=== PATIENT | female | born 1985 | race Caucasian/White ===

== ENCOUNTER 2020-04-24 17:14 | Inpatient (IN) | payer BC, OTHER ==
[2020-04-24] MEDS ORDERED: LIDOCAINE 1% INJ 10MG/ML (20 ML MDV) ONE (17:27)
[2020-04-24] MEDS ORDERED: VERAPAMIL 2.5 MG/ML 2 ML AMP ONE (17:27)
--- NOTE | 2020-04-24 17:29 | ED ---
General Adult HPI - General Chief complaint: Chest Pain Stated complaint: STEMI Time Seen by Provider: 04/24/20 17:14 Source: patient, EMS, RN notes reviewed, old records reviewed Mode of arrival: EMS Limitations: no limitations - History of Present Illness Initial comments: This is a 35-year-old female who presents emergency Department from [facility]. Patient states she started having chest pain radiated to her head she states she was short of breath and sweating profusely. Patient went to [facility] with a found to her to be having a STEMI and they called us to transfer the patient get her ready for the [facility] [employer] [facility]. Patient states she had morphine and her pain was down to a 6 she was still mildly short of breath and sweaty. Patient states she is a diabetic has high blood pressure has a strong family history of heart disease - Related Data Home Medications Medication Instructions Recorded Confirmed INSULIN ASPART (NovoLOG) [NovoLOG] 0 unit SQ ACHS 08/07/14 08/07/14 Insulin Glargine,Hum.rec.anlog 0 unit SQ DAILY 08/07/14 08/07/14 [Lantus Solostar] Labetalol [Trandate] 100 mg PO BID 08/07/14 08/07/14 Allergies Allergy/AdvReac Type Severity Reaction Status Date / Time No Known Allergies Allergy Verified 04/24/20 17:20 Review of Systems ROS Statement: Those systems with pertinent positive or pertinent negative responses have been documented in the HPI. ROS Other: All systems not noted in ROS Statement are negative. Past Medical History Past Medical History: Diabetes Mellitus, Hypertension History of Any Multi-Drug Resistant Organisms: None Reported Past Surgical History: Section, Cholecystectomy Past Psychological History: No Psychological Hx Reported Smoking Status: Current every day smoker Past Alcohol Use History: None Reported Past Drug Use History: None Reported General Exam - General Exam Comments Initial Comments: GENERAL: Patient is well-developed and well-nourished. Patient is nontoxic and well- hydrated and is in moderate patient was diaphoretic distress. ENT: Neck is soft and supple. No significant lymphadenopathy is noted. Oropharynx is clear. Moist mucous membranes. Neck has full range of motion without eliciting any pain. EYES: The sclera were anicteric and conjunctiva were pink and moist. Extraocular movements were intact and pupils were equal round and reactive to light. Eyelids were unremarkable. PULMONARY: Unlabored respirations. Good breath sounds bilaterally. No audible rales rhonchi or wheezing was noted. CARDIOVASCULAR: There is a regular rate and rhythm without any murmurs gallops or rubs. ABDOMEN: Soft and nontender with normal bowel sounds. SKIN: Skin is clear with no lesions or rashes and otherwise unremarkable. NEUROLOGIC: Patient is alert and oriented x3. Cranial nerves II through XII are grossly intact. Motor and sensory are also intact. Normal speech, volume and content. Symmetrical smile. MUSCULOSKELETAL: Normal extremities with adequate strength and full range of motion. No lower extremity swelling or edema. No calf tenderness. LYMPHATICS: No significant lymphadenopathy is noted PSYCHIATRIC: Normal psychiatric evaluation. Limitations: no limitations Course Vital Signs 04/24/20 17:16 Temperature 97.6 F Pulse Rate 97 Respiratory 18 Rate Blood Pressure 148/102 O2 Sat by Pulse 97 Oximetry Medical Decision Making - Medical Decision Making EKG shows a normal sinus rhythm at 96 bpm WI interval 282 QRS and 116 QT interval is 42 QTC is 507. Patient's EKG shows no ST segment elevation or depression. However EKG that was sent with the patient showed significant ST segment elevation inferior leads II, III, and F aVF. I called a STEMI overhead and Dr. Riley returned the call and they will be taking the patient to the Labor Economics Teacher. Patient had already received aspirin and morphine and heparin bolus patient's blood pressure was systolic 99 so I gave her a liter bolus of fluid Disposition Clinical Impression: ST elevation myocardial infarction (STEMI) Disposition: ADMITTED IP TO THIS HOSP Referrals: Lucinda Hay MD [Primary Care Provider] - 1-2 days Time of Disposition: 17:23
[2020-04-24] MEDS ORDERED: fentaNYL (PF) 50 MCG/ML 2 ML AMP IV ONE (17:35)
[2020-04-24] MEDS: MIDAZOLAM 2 MG/2 ML VIAL IV ONE ×2 (17:35→18:14)
[2020-04-24] MEDS ORDERED: IV FLUID CONTINUATION 1,000 ML IV ONE (17:35)
[2020-04-24] MEDS ORDERED: LIDOCAINE 1% INJ 10MG/ML (20 ML MDV) SQ ONE (17:36)
[2020-04-24] MEDS: VERAPAMIL SYRINGE (5 MG/10 ML) INTRAARTER ONE ×2 (17:38→18:14)
[2020-04-24] MEDS ORDERED: fentaNYL (PF) 50 MCG/ML 2 ML AMP ONE (17:40)
[2020-04-24] MEDS: HEPARIN SODIUM 1,000 UN/ML (10ML VL) IV ONE ×2 (17:45→17:59)
[2020-04-24] MEDS: NITROGLYCERIN 1000MCG/10ML SYRINGE INTRACORON ONE ×2 (17:45→18:09)
--- NOTE | 2020-04-24 17:48 | XR ---
EXAMINATION: XR chest 1V portable DATE AND TIME: 04/24/2020 5:27 PM CLINICAL INDICATION: PHH; CHEST PAIN TECHNIQUE: AP portable upright COMPARISON: None FINDINGS: The lungs are clear. The pleural spaces are negative. The cardiac silhouette is not enlarged. The remainder of the mediastinal silhouette is unremarkable. The skeletal structures and soft tissues are negative for acute findings. IMPRESSION: NO ACUTE PROCESS.
[2020-04-24] MEDS ORDERED: PRASUGREL 10 MG TAB ONE (17:49)
[2020-04-24] MEDS ORDERED: PRASUGREL 10 MG TAB PO ONE (17:52)
[2020-04-24] MEDS ORDERED: IOPAMIDOL-370 100ML BTL INJ ONE (18:13)
[2020-04-24] MEDS ORDERED: MAG HYDROX/AL HYDROX/SIMETH 30 ML CUP PO PRN (18:32)
[2020-04-24] MEDS ORDERED: NITROGLYCERIN SL TABS 0.4 MG TAB SUBLINGUAL PRN (18:32)
[2020-04-24] MEDS ORDERED: ZOLPIDEM 5 MG TAB PO PRN (18:32)
[2020-04-24] MEDS ORDERED: RX INFO: IV CONTRAST WAS GIVEN 1 EACH MISC MISCELLANE PRN (18:32)
[2020-04-24] MEDS ORDERED: ATROPINE SULFATE 0.1 MG/ML 10ML SYRINGE IV PRN (18:32)
[2020-04-24 18:39] LABS: Glucose,Whole Blood 382 mg/dL (75-99)
--- NOTE | 2020-04-24 18:43 | P.CRDCN ---
History of Present Illness Consult date: 04/24/20 History of present illness: HISTORY OF PRESENTING ILLNESS This is a pleasant 35-year-old female past medical history significant for hypertension, diabetes mellitus, tobacco abuse and miscarriages who presents with 2 hours worth of chest pain. Patient states she was going about her day feeling normal and then had sudden onset of chest pressure and did not feel well. Patient therefore presented to [facility] where she was given aspirin and heparin with improvement of her chest pain to a 1-2. Initial EKG showed inferior STEMI and the phlebotomist lab assistant was activated. Patient was transferred to [facility] for further management. Upon arrival to the [facility] she had no chest pain. She denies any prior similar episodes. She does not see a travel freight and passenger agent. DIAGNOSTICS EKG reveals normal sinus rhythm, incomplete left bundle branch block, minimal upsloping ST segment elevation in inferior leads. Chest xray no acute process. Laboratory not resulted yet Patient does not take any home medications. Positive tobacco abuse. No illicit drugs. REVIEW OF SYSTEMS At the time of my exam: CONSTITUTIONAL: Denies fever or chills. CARDIOVASCULAR: +chest pain, + associated shortness of breath, no orthopnea, PND or palpitations. RESPIRATORY: Denies cough. GASTROINTESTINAL: Denies abdominal pain, diarrhea, constipation, nausea or vomiting. MUSCULOSKELETAL: Denies myalgias. NEUROLOGIC: Denies numbness, tingling or weakness. ENDOCRINE: Denies fatigue, weight change, polydipsia or polyurina. GENITOURINARY: Denies burning, hematuria or urgency with micturation. HEMATOLOGIC: Denies history of anemia or bleeding. PHYSICAL EXAMINATION Blood pressure 162/85 heart rate 105 afebrile and maintaining oxygen saturation on room air. CONSTITUTIONAL: No apparent distress. HEENT: Head is normocephalic. Pupils are equal, round. Sclerae anicteric. Mucous membranes of the mouth are moist. No JVD. No carotid bruit. CHEST EXAMINATION: Lungs are clear to auscultation. No chest wall tenderness is noted on palpation or with deep breathing. HEART EXAMINATION: Regular rate and rhythm. S1, S2 heard. No murmurs, gallops or rub. ABDOMEN: Soft, nontender. Positive bowel sounds. EXTREMITIES: 2+ peripheral pulses, no lower extremity edema and no calf tenderness. NEUROLOGIC EXAMINATION: Patient is awake, alert and oriented x3. ASSESSMENT 1. Inferior STEMI with resolution of pain by time she presented to the phlebotomist lab assistant 2. Tobacco abuse 3. Hypertension 4. History of diabetes mellitus type 2 PLAN Catheterization lab activated and patient will be brought for emergent left heart catheterization with possible PCI. Aggressive risk factor modification. Tobacco cessation. Aspirin, heparin, beta valentin. Check 2-D echo. Past Medical History Past Medical History: Diabetes Mellitus, Hypertension History of Any Multi-Drug Resistant Organisms: None Reported Past Surgical History: Section, Cholecystectomy Past Psychological History: No Psychological Hx Reported Smoking Status: Current every day smoker Past Alcohol Use History: None Reported Past Drug Use History: None Reported Medications and Allergies Home Medications Medication Instructions Recorded Confirmed Type Atorvastatin [Lipitor] 20 mg PO DAILY 04/24/20 04/24/20 History Insulin Glargine,Hum.rec.anlog 30 unit SQ HS 04/24/20 04/24/20 History [Basaglar Kwikpen U-100] Insulin Lispro [humaLOG] See Protocol SQ ACHS 04/24/20 04/24/20 History Levonorgestrel-Ethin Estradiol 1 tab PO DAILY 04/24/20 04/24/20 History [Lutera-28 Tablet] Allergies Allergy/AdvReac Type Severity Reaction Status Date / Time No Known Allergies Allergy Verified 04/24/20 17:20 Physical Exam Vitals: Vital Signs Temp Pulse Resp BP Pulse Ox 04/24/20 17:16 97.6 F 97 18 148/102 97 Intake and Output 04/24/20 04/24/20 04/24/20 06:59 14:59 22:59 Intake Total 150 Balance 150 Intake: IV 150 Other: Weight 81.647 kg Results Current Medications Generic Name Dose Route Start Last Admin Trade Name Freq PRN Reason Stop Dose Admin Al Hydroxide/Mg Hydroxide 30 ml 04/24/20 18:32 Mag Hydrox/Al Hydrox/Simeth 30 Ml Cup PO Q4HR PRN Heartburn Aspirin 81 mg 04/25/20 09:00 Aspirin 81 Mg PO DAILY REPLACED BY [facility] Atorvastatin Calcium 80 mg 04/24/20 21:00 Atorvastatin 80 Mg Tab PO HS REPLACED BY [facility] Atropine Sulfate 0.5 mg 04/24/20 18:32 Atropine Sulfate 0.1 Mg/Ml 10ml Syringe IV ONCE PRN Symptomatic Bradycardia Sodium Chloride 1,000 mls @ 75 mls/hr 04/24/20 18:45 Saline 0.9% IV 04/25/20 00:46 .[id number] ALBERTO Metoprolol Tartrate 25 mg 04/24/20 21:00 Metoprolol Tartrate 25 Mg Tab PO BID ALBERTO Miscellaneous Information 1 each 04/24/20 18:32 Rx Info: Iv Contrast Was Given 1 Each Misc MISCELLANE 04/26/20 18:32 DAILY PRN Per Protocol Nitroglycerin 0.4 mg 04/24/20 18:32 Nitroglycerin Sl Tabs 0.4 Mg Tab SUBLINGUAL Q5M PRN Chest Pain Prasugrel 10 mg 04/25/20 09:00 Prasugrel 10 Mg Tab PO DAILY ALBERTO Zolpidem Tartrate 5 mg 04/24/20 18:32 Zolpidem 5 Mg Tab PO HS PRN Insomnia Intake and Output 04/24/20 04/24/20 04/24/20 06:59 14:59 22:59 Intake Total 150 Balance 150 Intake: IV 150 Other: Weight 81.647 kg Patient Weight 04/25/20 06:59 Weight 81.647 kg
[2020-04-24] MEDS ORDERED: SODIUM CHLORIDE 0.9% 1,000 ML IV SCH (18:45)
--- NOTE | 2020-04-24 18:53 | P.PRCINT ---
Percutaneous Coronary Int. - Percutaneous Coronary Intervention Percutaneous Coronary Intervention: PROCEDURES PERFORMED: Selective bilateral coronary angiography, successful PCI of distal RCA with a 4.0 x 12 mm Xience CONSUELO. INDICATION: Inferior STEMI HISTORY: Patient is a pleasant 35-year-old female with history of diabetes mellitus, hypertension, tobacco abuse who presented with 2 hours worth of chest pain to [facility]. She was found to have inferior STEMI and catheterization lab was activated and she was transferred to [facility]. By the time she presented to the Graduate Recruiter her ST elevations had improved and she was chest pain-free. She denies any illicit drug use. PROCEDURE: After the risks, benefits and alternatives of the above mentioned procedure explained in detail with the patient, informed consent was obtained. Patient was prepped and draped in the usual fashion. The right radial area was anesthetized using 2% lidocaine. A 6-Central African sheath was placed in the right radial artery using modified Seldinger technique. Right left coronary angiography were performed with a 5-Central African FR5 and 5-Central African FL 3.5 catheter respectively in various views. The decision was made to intervene upon the RCA. Heparin was given for an ACT greater than 250. A 6Fr AL 0.75 guide catheter was used to engage the RCA. A 0.014 BMW wire was advanced into the distal vessel without difficulty. The lesion was predilated with a 2.5 x 8 mm balloon. Next, a 4.0 x 12 mm Xience CONSULEO was deployed. Preintervention there was a 95 % stenosis and RISHI 3 flow and post intervention there was 0 % residual stenosis and RISHI 3 flow without evidence of dissection. The wire was removed and final angiograms were taken. The right radial sheath was removed and a TR band was placed with hemostasis achieved. The patient tolerated the procedure well. Patient was transported back to the post catheterization holding area in stable condition. Conscious Sedation: Patient was monitored under the direct supervision of vision of myself for conscious sedation using Versed and fentanyl for a total duration of 40 minutes HEMODYNAMICS: Aorta: 151/95 SELECTIVE CORONARY ARTERIOGRAPHY: LEFT MAIN: The left main is a large caliber vessel which trfurcates into the LAD, a small ramus and circumflex. There is no significant stenosis. LEFT ANTERIOR DESCENDING CORONARY ARTERY: LAD is a large caliber vessel which wraps around to the apex. There is no significant stenosis. Diagonal 1 is moderate caliber and has no significant stenosis. Diagonal 2 has a proximal 40- 50% origin stenosis. RAMUS INTERMEDIUS: The ramus is a small caliber vessel without significant stenosis. LEFT CIRCUMFLEX CORONARY ARTERY: Left circumflex is a moderate caliber vessel without significant stenosis and gives off 2 obtuse marginal branches RIGHT CORONARY ARTERY: The right coronary artery is a large caliber vessel which gives off a PDA and PLV branch and is the dominant vessel. There is a distal 95% RCA stenosis at a tortuous segment. There are mild luminal irregularities otherwise. FINAL IMPRESSION: 1. Inferior STEMI 2. Successful PCI of distal RCA with a 4.0 x 12 mm Xience drug-eluting stent 3. Mild disease elsewhere including a 40% diagonal to stenosis and otherwise only luminal irregularities. PLAN: 1. Aggressive risk factor modification per most recent ACC/AHA guidelines. 2. Continue dual antiplatelets for 12 months. 3. Tobacco cessation.
[2020-04-24] MEDS: METOPROLOL TARTRATE 25 MG TAB PO SCH (19:10)
[2020-04-24 21:05] LABS: Glucose,Whole Blood 442 mg/dL (75-99)
[2020-04-24] MEDS: ATORVASTATIN 80 MG TAB PO SCH (21:11)
[2020-04-24] MEDS: INSULIN ASPART (NovoLOG) 100 UNIT/ML VIAL SQ SCH (21:11)
[2020-04-25 04:51] LABS: Basophils # (A) 0.1 k/uL (0-0.2); Basophils % (A) 1 %; Eosinophils # (A) 0.5 k/uL (0-0.7); Eosinophils % (A) 4 %; HCT 41.7 % (34.0-46.0); HGB 13.6 gm/dL (11.4-16.0); Lymphocytes # (A) 3.9 k/uL (1.0-4.8); Lymphocytes % (A) 34 %; MCH 28.7 pg (25.0-35.0); MCHC 32.7 g/dL (31.0-37.0); MCV 87.8 fL (80.0-100.0); Mean Platelet Volume 8.3; Monocytes # (A) 0.6 k/uL (0-1.0); Monocytes % (A) 6 %; Neutrophils % (A) 53 %; Platelet Count 309 k/uL (150-450); RBC 4.76 m/uL (3.80-5.40); WBC 11.3 k/uL (3.8-10.6)
[2020-04-25 05:00] LABS: African American GFR (CKD) >90 (>60 ml/min/1.73 sqM); Anion Gap 6 mmol/L; Blood Urea Nitrogen 9 mg/dL (7-17); Calcium 8.6 mg/dL (8.4-10.2); Carbon Dioxide 25 mmol/L (22-30); Chloride 103 mmol/L (98-107); Glucose 236 mg/dL (74-99); Non-African American GFR(CKD) >90 (>60 ml/min/1.73 sqM); Phosphorus 4.5 mg/dL (2.5-4.5); Potassium 3.6 mmol/L (3.5-5.1); Sodium 134 mmol/L (137-145)
[2020-04-25] MEDS ORDERED: Potassium Replacement Protocol 1 EACH MISC MISCELLANE PRN (05:03)
[2020-04-25] MEDS ORDERED: POTASSIUM CHLORIDE ER 20 MEQ TAB.ER PO SCH (06:00)
[2020-04-25 06:50] LABS: Glucose,Whole Blood 306 mg/dL (75-99)
[2020-04-25] MEDS: INSULIN ASPART (NovoLOG) 100 UNIT/ML VIAL SQ SCH ×4 (07:03→20:19)
--- NOTE | 2020-04-25 08:16 | P.PN ---
Subjective Progress Note Date: 04/25/20 Principal diagnosis: Acute inferior ST elevation GA This is a 35-year-old female patient with diabetes and dyslipidemia who presented initially to [facility] with a chest discomfort and was diagnosed with acute inferior ST patient myocardial infarction. Subsequently the patient was [facility] where she underwent an emergent heart catheterization and was found to have critical disease involving the distal right coronary artery which was stented. The patient was seen today April [id number]. She is asymptomatic from a perivascular standpoint overview. The right radial site is slightly bruised and tender. I kept the TR band there. No chest pain or chest discomfort or shortness of breath. No arrhythmia noted overnight. She remains on dual antiplatelet therapy along with beta valentin and high intensity statin. I'm going to a small dose of NADYA inhibitor to the current medical regimen. She is still slightly hypertensive. An echocardiogram was ordered and we will follow- up on that. Objective - Vital Signs Vital signs: Vital Signs Temp 98.3 F 04/25/20 04:00 Pulse 93 04/25/20 07:00 Resp 16 04/25/20 07:00 BP 151/105 04/25/20 07:00 Pulse Ox 95 04/25/20 07:00 Intake & Output 04/24/20 04/25/20 04/25/20 18:59 06:59 18:59 Intake Total 150 900 75 Output Total 400 Balance 150 500 75 Weight 81.647 kg 83.1 kg Intake: IV 150 Intake, IV Titration 900 75 Amount Sodium Chloride 0.9% 1, 900 75 000 ml @ 75 mls/hr IV . [id number] [facility] Rx#:[id number] Output: Urine 400 Other: # Voids 1 - Constitutional General appearance: Present: no acute distress - Respiratory Respiratory: bilateral: CTA - Cardiovascular Rhythm: regular Heart sounds: normal: S1, S2 - Labs CBC & Chem 7: 04/25/20 04:19 04/25/20 04:19 Labs: Abnormal Lab Results - Last 24 Hours (Table) 04/24/20 04/24/20 04/25/20 Range/Units 18:37 21:04 04:19 WBC (3.8-10.6) k/uL Sodium 134 L (137-145) mmol/L Creatinine 0.50 L (0.52-1.04) mg/dL Glucose 236 H (74-99) mg/dL POC Glucose (mg/dL) 382 H 442 H (75-99) mg/dL Albumin 3.0 L (3.5-5.0) g/dL 04/25/20 04/25/20 Range/Units 04:19 06:49 WBC 11.3 H (3.8-10.6) k/uL Sodium (137-145) mmol/L Creatinine (0.52-1.04) mg/dL Glucose (74-99) mg/dL POC Glucose (mg/dL) 306 H (75-99) mg/dL Albumin (3.5-5.0) g/dL Assessment and Plan Assessment: Assessment #[address] patient myocardial infarction #2 coronary artery disease and status post PCI of the RCA #3 diabetes #4 hypertension #5 dyslipidemia Plan #1 continue dual antiplatelet therapy along with high intensity statin #2 continue anti-ischemic medication and add high intensity statin #3 add lisinopril to the current medical regimen #4 follow-up on the echocardiogram
[2020-04-25] MEDS: PRASUGREL 10 MG TAB PO SCH (08:40)
[2020-04-25] MEDS: ASPIRIN 81 MG PO SCH (08:40)
[2020-04-25] MEDS: METOPROLOL TARTRATE 25 MG TAB PO SCH ×2 (08:40→20:19)
--- NOTE | 2020-04-25 11:00 | ECHOF ---
Referral Reason:STEMI MEASUREMENTS -------- HEIGHT: 177.8 cm WEIGHT: 83.0 kg BP: IVSd: 1.1 cm (0.6 - 1.1) LVIDd: 3.9 cm (3.9 - 5.3) LVPWd: 1.2 cm (0.6 - 1.1) IVSs: 2.0 cm LVIDs: 3.1 cm LVPWs: 1.8 cm LAESV Index (A-L): 19.13 ml/m Ao Diam: 2.4 cm (2.0 - 3.7) AV Cusp: 1.5 cm (1.5 - 2.6) LA Diam: 2.8 cm (2.7 - 3.8) MV EXCURSION: 15.965 mm (> 18.000) MV EF SLOPE: 89 mm/s (70 - 150) EPSS: 0.6 cm MV E Rehan: 0.84 m/s MV DecT: 114 ms MV A Rehan: 0.63 m/s MV E/A Ratio: 1.33 RAP: 5.00 mmHg RVSP: 25.90 mmHg FINDINGS -------- This was a technically good study. The left ventricular size is normal. Left ventricular wall thickness is normal. Overall left vent ricular systolic function is low-normal with, an EF between 50 - 55 %. The diastolic filling patter n is normal for the age of the patient 13.00. iNFERIOR WALL HYPOKINESIS The right ventricle is normal in size. The left atrial size is normal. Normal LA size by volume 22+/-6 ml/m2. The right atrial size is normal. Interatrial and interventricular septum intact. The aortic valve is trileaflet and appears structurally normal. The mitral valve is normal. Mild mitral regurgitation is present. The tricuspid valve appears structurally normal. Trace tricuspid regurgitation present. Right macy tricular systolic pressure is normal at < 35 mmHg. There is no pulmonic regurgitation present. The aortic root size is normal. Normal inferior vena cava with normal inspiratory collapse consistent with estimated right atrial pre ssure of 5 mmHg. There is no pericardial effusion. CONCLUSIONS -------- 1. The left ventricular size is normal. 2. Left ventricular wall thickness is normal. 3. Overall left ventricular systolic function is low-normal with, an EF between 50 - 55 %. 4. The diastolic filling pattern is normal for the age of the patient 13.00 5. Mild mitral regurgitation is present. 6. Trace tricuspid regurgitation present. 7. There is no pericardial effusion. CANTEEN MANAGER: Merly Ortiz RDCS
[2020-04-25 11:25] VITALS: BMI 26.2
[2020-04-25 11:58] LABS: Glucose,Whole Blood 311 mg/dL (75-99)
[2020-04-25 16:51] LABS: Glucose,Whole Blood 325 mg/dL (75-99)
[2020-04-25 20:15] LABS: Glucose,Whole Blood 303 mg/dL (75-99)
[2020-04-25] MEDS: ATORVASTATIN 80 MG TAB PO SCH (20:19)
[2020-04-25] MEDS: INSULIN DETEMIR (LEVEMIR) 100 UNIT/ML SYR SQ SCH (20:20)
--- NOTE | 2020-04-25 21:18 | P.HPIM ---
History of Present Illness H&P Date: 04/25/20 Chief Complaint: Chest Pain Patient is a 35-year-old female with a known history of hypertension, hyperlipidemia, diabetes type 2 insulin-dependent and currently everyday smoker presents to ER with complaints of mid retrosternal chest pain radiating to the left shoulder now associate with shortness of breath and profuse sweating. Patient initially presented to [facility] and was found to have ST elevated CT and patient was immediately transferred to [facility] for immediate cardiac catheterization. Patient is status post cardiac catheterization and successful PCI of distal RCA and found to have mild disease elsewhere including 40% diagonal stenosis and otherwise only luminal irregularities. Patient currently denies any complaints of chest pain or shortness breath. No nausea vomiting abdominal pain or diarrhea. Denies any recent illnesses. Review of Systems Constitutional: Patient denies any fever or chills . No generalized weakness or weight loss. Abdomen: Patient denied nausea vomiting and diarrhea and abdominal pain. Cardiovascular: Patient denies any chest pain or short of breath no palpitations. Respiratory: patient denied any cough is from production. No shortness of breath Neurologic: Patient denied any numbness or tingling headache. Musculoskeletal: Patient denies any complaints of joint swelling or deformity. Skin: Negative Psychiatric: Negative Endocrine: No heat or cold intolerance. No recent weight gain. Genitourinary: No dysuria or hematuria. All other 14 point ROS negative except the above Past Medical History Past Medical History: Diabetes Mellitus, Hyperlipidemia, Hypertension History of Any Multi-Drug Resistant Organisms: None Reported Past Surgical History: Section, Cholecystectomy Additional Past Surgical History / Comment(s): x2 c section Past Psychological History: No Psychological Hx Reported Smoking Status: Current every day smoker Past Alcohol Use History: None Reported Past Drug Use History: None Reported Medications and Allergies Home Medications Medication Instructions Recorded Confirmed Type Atorvastatin [Lipitor] 20 mg PO DAILY 04/24/20 04/24/20 History Insulin Glargine,Hum.rec.anlog 30 unit SQ HS 04/24/20 04/24/20 History [Basaglar Kwikpen U-100] Insulin Lispro [humaLOG] See Protocol SQ ACHS 04/24/20 04/24/20 History Levonorgestrel-Ethin Estradiol 1 tab PO DAILY 04/24/20 04/24/20 History [Lutera-28 Tablet] Allergies Allergy/AdvReac Type Severity Reaction Status Date / Time No Known Allergies Allergy Verified 04/24/20 17:20 Physical Exam Vitals: Vital Signs Temp Pulse Pulse Resp BP Pulse Ox 04/25/20 11:00 93 20 138/101 04/25/20 10:00 102 H 16 133/90 04/25/20 09:00 99 18 141/100 04/25/20 08:00 98.0 F 92 13 141/100 96 04/25/20 07:00 93 16 151/105 95 04/25/20 06:00 89 20 145/95 96 04/25/20 05:00 94 15 146/91 92 L 04/25/20 04:00 98.3 F 97 18 156/105 99 04/25/20 03:00 93 16 152/99 96 04/25/20 02:00 100 18 150/98 92 L 04/25/20 01:00 98 16 158/107 94 L 04/25/20 00:00 98.6 F 97 16 150/99 94 L 04/24/20 23:00 96 15 143/97 93 L 04/24/20 22:00 93 18 135/91 96 04/24/20 21:30 105 H 17 150/95 94 L 04/24/20 21:15 110 H 18 142/55 96 04/24/20 21:00 100 15 130/88 93 L 04/24/20 20:45 99 20 135/91 97 04/24/20 20:30 102 H 20 141/92 96 04/24/20 20:15 111 H 15 161/105 99 04/24/20 20:00 98.6 F 105 H 13 149/101 94 L 04/24/20 19:45 110 H 16 160/106 97 04/24/20 19:30 109 H 18 157/102 96 04/24/20 19:15 112 H 13 155/110 99 04/24/20 19:00 112 H 15 161/107 04/24/20 18:47 110 H 04/24/20 18:45 98.0 F 108 H 14 162/108 04/24/20 18:34 105 H 17 04/24/20 18:32 112 H 04/24/20 17:16 97.6 F 97 18 148/102 97 Intake and Output 04/24/20 04/25/20 04/25/20 22:59 06:59 14:59 Intake Total 450 600 75 Output Total 400 Balance 50 600 75 Intake: IV 150 Intake, IV Titration 300 600 75 Amount Sodium Chloride 0.9% 1, 300 600 75 000 ml @ 75 mls/hr IV . [id number] [facility] Rx#:[id number] Output: Urine 400 Other: Voiding Method Toilet # Voids 1 1 Weight 81.647 kg 83.1 kg 83.1 kg PHYSICAL EXAMINATION: Patient is lying in the bed comfortably, no acute distress, awake alert and oriented.. HEENT: Normocephalic. Neck is supple. Pupils reactive. Nostrils clear. Oral cavity is moist. Ears reveal no drainage. Neck reveals no JVD, carotid bruits, or thyromegaly. CHEST EXAMINATION: Trachea is central. Symmetrical expansion. Lung ko clear to auscultation and percussion. CARDIAC: Normal S1, S2 with no gallops. No murmurs ABDOMEN: Soft. Bowel sounds normal. No organomegaly. No abdominal bruits. Extremities: reveal no edema. No clubbing or cyanosis Neurologically awake, alert, oriented x3 with well-coordinated movements. No focal deficits noted Skin: No rash or skin lesions. Psychiatric: Coperative. Nonsuicidal Musculoskeletal: No joint swelling or deformity. Normal range of motion. Results CBC & Chem 7: 04/25/20 04:19 04/25/20 04:19 Labs: Abnormal Lab Results - Last 24 Hours (Table) 04/24/20 04/24/20 04/25/20 Range/Units 18:37 21:04 04:19 WBC (3.8-10.6) k/uL Sodium 134 L (137-145) mmol/L Creatinine 0.50 L (0.52-1.04) mg/dL Glucose 236 H (74-99) mg/dL POC Glucose (mg/dL) 382 H 442 H (75-99) mg/dL Albumin 3.0 L (3.5-5.0) g/dL 04/25/20 04/25/20 04/25/20 Range/Units 04:19 06:49 11:47 WBC 11.3 H (3.8-10.6) k/uL Sodium (137-145) mmol/L Creatinine (0.52-1.04) mg/dL Glucose (74-99) mg/dL POC Glucose (mg/dL) 306 H 311 H (75-99) mg/dL Albumin (3.5-5.0) g/dL Thrombosis Risk Factor Assmnt - DVT/VTE Prophylaxis DVT/VTE Prophylaxis: Pharmacologic Prophylaxis ordered - Choose All That Apply Any of the Below Risk Factors Present?: Yes Each Factor Represents 1 point: Obesity (BMI >25) Other Risk Factors: No Other congenital or acquired thrombophilia - If yes, enter type in comment: No Thrombosis Risk Factor Assessment Total Risk Factor Score: 1 Thrombosis Risk Factor Assessment Level: Low Risk Assessment and Plan Assessment: Acute inferior wall CT/ST elevated CT Coronary artery disease status post stent placement to RCA Diabetes type 2 insulin-dependent Family history of coronary disease Hyperlipidemia Hypertension Ongoing nicotine addiction DVT prophylaxis Plan: Patient is currently status post cardiac catheterization and stent placement. Continue with aspirin and Plavix. Continue beta-blockers and lisinopril was added. Cardiology is following. 2D echocardiogram was ordered. Continue to monitor the patient in the MICU.Smoking cessation has been counseled extensively. Time with Patient: Greater than 30
[2020-04-26 06:50] LABS: Glucose,Whole Blood 180 mg/dL (75-99)
--- NOTE | 2020-04-26 07:04 | P.PN ---
Subjective Progress Note Date: 04/26/20 Principal diagnosis: Acute inferior ST elevation RI This is a 35-year-old female patient with diabetes and dyslipidemia who presented initially to [facility] with a chest discomfort and was diagnosed with acute inferior ST patient myocardial infarction. Subsequently the patient was transferred to [facility] where she underwent an emergent heart catheterization and was found to have critical disease involving the distal right coronary artery which was stented. The patient was seen today 04/26/2020. She continues to be asymptomatic from a perivascular standpoint overview. She continues to be hemodynamically stable. She is a slightly tachycardic and I'm going to increase the dose of metoprolol to 50 mg by mouth twice a day. Beside that she is on dual antiplatelet therapy along with high intensity statin. The echo showed normal left ventricle systolic function. The patient possibly can be discharged home in the next 24 hours. Objective - Vital Signs Vital signs: Vital Signs Temp 98.8 F 04/26/20 04:00 Pulse 86 04/26/20 06:00 Resp 14 04/26/20 06:00 BP 130/91 04/26/20 06:00 Pulse Ox 94 L 04/26/20 04:00 Intake & Output 04/25/20 04/26/20 04/26/20 18:59 06:59 18:59 Intake Total 835 540 Balance 835 540 Weight 83.1 kg 56.5 kg Intake: Intake, IV Titration 75 Amount Sodium Chloride 0.9% 1, 75 000 ml @ 75 mls/hr IV . [id number] [facility] Rx#:[id number] Oral 760 540 Other: Voiding Method Toilet Toilet # Voids 3 1 - Constitutional General appearance: Present: no acute distress - Respiratory Respiratory: bilateral: CTA - Cardiovascular Rhythm: regular Heart sounds: normal: S1, S2 - Labs CBC & Chem 7: 04/25/20 04:19 04/25/20 04:19 Labs: Abnormal Lab Results - Last 24 Hours (Table) 04/25/20 04/25/20 04/25/20 Range/Units 11:47 16:49 20:13 POC Glucose (mg/dL) 311 H 325 H 303 H (75-99) mg/dL 04/26/20 Range/Units 06:48 POC Glucose (mg/dL) 180 H (75-99) mg/dL Assessment and Plan Assessment: Assessment #[address] patient myocardial infarction #2 coronary artery disease and status post PCI of the RCA #3 diabetes #4 hypertension #5 dyslipidemia Plan #1 continue dual antiplatelet therapy along with high intensity statin #2 continue anti-ischemic medication and add high intensity statin #3 increase the dose of metoprolol #4 possible discharge in the next 24 hours
[2020-04-26] MEDS: INSULIN ASPART (NovoLOG) 100 UNIT/ML VIAL SQ SCH ×7 (07:16→20:26)
[2020-04-26] MEDS: PRASUGREL 10 MG TAB PO SCH (09:29)
[2020-04-26] MEDS: ASPIRIN 81 MG PO SCH (09:29)
[2020-04-26] MEDS: METOPROLOL TARTRATE 50 MG TAB PO SCH ×2 (09:29→20:25)
[2020-04-26 11:39] LABS: Glucose,Whole Blood 252 mg/dL (75-99)
[2020-04-26 17:05] LABS: Glucose,Whole Blood 348 mg/dL (75-99)
[2020-04-26 20:23] LABS: Glucose,Whole Blood 250 mg/dL (75-99)
[2020-04-26] MEDS: INSULIN DETEMIR (LEVEMIR) 100 UNIT/ML SYR SQ SCH (20:25)
[2020-04-26] MEDS: ATORVASTATIN 80 MG TAB PO SCH (20:25)
[2020-04-27 07:12] LABS: Glucose,Whole Blood 148 mg/dL (75-99)
--- NOTE | 2020-04-27 07:12 | P.PN ---
Subjective Progress Note Date: 04/27/20 Principal diagnosis: Acute inferior ST elevation DE This is a 35-year-old female patient with diabetes and dyslipidemia who presented initially to [facility] with a chest discomfort and was diagnosed with acute inferior ST patient myocardial infarction. Subsequently the patient was transferred to [facility] where she underwent an emergent heart catheterization and was found to have critical disease involving the distal right coronary artery which was stented. The patient was seen today April [id number]. She is asymptomatic from a cardiovascular standpoint of view. She is hemodynamically stable. She is on dual antiplatelet therapy along with high intensity statin. The echo showed normal left ventricular systolic function. The patient would like to be discharged home. From a cardiovascular standpoint she can be discharged home Objective - Vital Signs Vital signs: Vital Signs Temp 98.4 F 04/27/20 04:00 Pulse 84 04/27/20 04:00 Resp 14 04/27/20 04:00 BP 124/94 04/27/20 04:00 Pulse Ox 96 04/27/20 04:00 Intake & Output 04/26/20 04/27/20 04/27/20 18:59 06:59 18:59 Intake Total 1040 740 Balance 1040 740 Weight 54.5 kg Intake: Oral 1040 740 Other: Voiding Method Toilet Toilet # Voids 3 1 - Constitutional General appearance: Present: no acute distress - Respiratory Respiratory: bilateral: CTA - Cardiovascular Rhythm: regular Heart sounds: normal: S1, S2 - Labs CBC & Chem 7: 04/25/20 04:19 04/25/20 04:19 Labs: Abnormal Lab Results - Last 24 Hours (Table) 04/26/20 04/26/20 04/26/20 Range/Units 11:38 17:03 20:22 POC Glucose (mg/dL) 252 H 348 H 250 H (75-99) mg/dL Assessment and Plan Assessment: Assessment #[address] patient myocardial infarction #2 coronary artery disease and status post PCI of the RCA #3 diabetes #4 hypertension #5 dyslipidemia Plan #1 continue the current medical regimen including dual antiplatelet therapy #2 continue high intensity started #3 the patient can be discharged home
[2020-04-27] MEDS: INSULIN ASPART (NovoLOG) 100 UNIT/ML VIAL SQ SCH ×4 (07:19→12:33)
[2020-04-27 08:04] VITALS: BP 140/89; PULSE 93; RESP 18; TEMP 97.7
[2020-04-27] MEDS: PRASUGREL 10 MG TAB PO SCH (08:35)
[2020-04-27] MEDS: ASPIRIN 81 MG PO SCH (08:35)
[2020-04-27] MEDS: METOPROLOL TARTRATE 50 MG TAB PO SCH (08:35)
--- NOTE | 2020-04-27 10:59 | P.PN ---
Subjective Progress Note Date: 04/26/20 Principal diagnosis: Acute ST elevation [place] Patient is a 35-year-old female with a known history of hypertension, hyperlipidemia, diabetes type 2 insulin-dependent and currently everyday smoker presents to ER with complaints of mid retrosternal chest pain radiating to the left shoulder now associate with shortness of breath and profuse sweating. Patient initially presented to [facility] and was found to have ST elevated UT and patient was immediately transferred to [facility] for immediate cardiac catheterization. Patient is status post cardiac catheterization and successful PCI of distal RCA and found to have mild disease elsewhere including 40% diagonal stenosis and otherwise only luminal irregularities. Patient currently denies any complaints of chest pain or shortness breath. No nausea vomiting abdominal pain or diarrhea. Denies any recent illnesses. 04/26/2020 Patient is currently lying in the bed comfortably. No complaints of chest pain or shortness of breath. Blood pressure is still elevated and is also hyperglycemic this morning. Patient was started on metoprolol 50 mg twice daily and will add lisinopril. Continued on dual antiplatelet therapy and high intensity statins. Echocardiogram showed normal ejection fraction. Continue with telemetry monitoring and anticipate discharge in the next 24 hours. Cardiology is on board. Current medications reviewed. Objective - Vital Signs Vital signs: Vital Signs Temp 97.1 F L 04/26/20 16:00 Pulse 94 04/26/20 16:00 Resp 15 04/26/20 16:00 BP 143/93 04/26/20 16:00 Pulse Ox 96 04/26/20 16:00 Intake & Output 04/26/20 04/26/20 04/27/20 06:59 18:59 06:59 Intake Total 540 1040 Output Total 0 Balance 540 1040 Weight 56.5 kg Intake: Oral 540 1040 Output: Urine 0 Other: Voiding Method Toilet Toilet # Voids 1 3 - Exam PHYSICAL EXAMINATION: Patient is lying in the bed comfortably, no acute distress, awake alert and oriented.. HEENT: Normocephalic. Neck is supple. Pupils reactive. Nostrils clear. Oral cavity is moist. Ears reveal no drainage. Neck reveals no JVD, carotid bruits, or thyromegaly. CHEST EXAMINATION: Trachea is central. Symmetrical expansion. Lung ko clear to auscultation and percussion. CARDIAC: Normal S1, S2 with no gallops. No murmurs ABDOMEN: Soft. Bowel sounds normal. No organomegaly. No abdominal bruits. Extremities: reveal no edema. No clubbing or cyanosis Neurologically awake, alert, oriented x3 with well-coordinated movements. No focal deficits noted Skin: No rash or skin lesions. Psychiatric: Coperative. Nonsuicidal Musculoskeletal: No joint swelling or deformity. Normal range of motion. - Labs CBC & Chem 7: 04/25/20 04:19 04/25/20 04:19 Labs: Abnormal Lab Results - Last 24 Hours (Table) 04/26/20 04/26/20 04/26/20 Range/Units 06:48 11:38 17:03 POC Glucose (mg/dL) 180 H 252 H 348 H (75-99) mg/dL 04/26/20 Range/Units 20:22 POC Glucose (mg/dL) 250 H (75-99) mg/dL Assessment and Plan Assessment: Acute inferior wall UT/ST elevated UT Coronary artery disease status post stent placement to RCA Hyperglycemia with unconrolled Diabetes type 2 insulin-dependent Family history of coronary disease Hyperlipidemia Hypertension Ongoing nicotine addiction DVT prophylaxis Plan: Patient is currently status post cardiac catheterization and stent placement. Continue with aspirin and Plavix. Continue beta-blockers and lisinopril was added. Cardiology is following. 2D echocardiogram was ordered. Continue with home dose of Levemir and added NovoLog 3 times daily AC. Continue with insulin sliding scale for better blood sugar control. Continue to monitor the patient in the MICU.Smoking cessation has been counseled extensively. Time with Patient: Greater than 30
[2020-04-27 11:37] LABS: Glucose,Whole Blood 225 mg/dL (75-99)
--- NOTE | 2020-04-30 19:05 | P.DS ---
Providers Date of admission: 04/24/20 18:19 Expected date of discharge: 04/27/20 Attending physician: Hermes Hurley MD Consults: 04/24/20 18:32 Consult Physician Routine Consulting Provider: [facility] Consult Reason/Comments: Post Interventional patient Do you want consulting provider notified?: Already Contacted Primary care physician: Lucinda [facility] Course: Discharge diagnosis Acute inferior wall ME/ST elevated ME Coronary artery disease status post stent placement to RCA Hyperglycemia with unconrolled Diabetes type 2 insulin-dependent Family history of coronary disease Hyperlipidemia Hypertension Ongoing nicotine addiction DVT prophylaxis Hospital course Patient is a 35-year-old female with a known history of hypertension, hyperlipidemia, diabetes type 2 insulin-dependent and currently everyday smoker presents to ER with complaints of mid retrosternal chest pain radiating to the left shoulder now associate with shortness of breath and profuse sweating. Patient initially presented to [facility] and was found to have ST elevated ME and patient was immediately transferred to [facility] for immediate cardiac catheterization. Patient is status post cardiac catheterization and successful PCI of distal RCA and found to have mild disease elsewhere including 40% diagonal stenosis and otherwise only luminal irregularities. Patient currently denies any complaints of chest pain or shortness breath. No nausea vomiting abdominal pain or diarrhea. Denies any recent illnesses. 04/26/2020 Patient is currently lying in the bed comfortably. No complaints of chest pain or shortness of breath. Blood pressure is still elevated and is also hyperglycemic this morning. Patient was started on metoprolol 50 mg twice daily and will add lisinopril. Continued on dual antiplatelet therapy and high intensity statins. Echocardiogram showed normal ejection fraction. Continue with telemetry monitoring and anticipate discharge in the next 24 hours. Cardiology is on board. 04/27/2020 Patient is currently lying in bed comfortably. No complaints of chest pain or shortness breath. No acute overnight issues. Telemetry monitoring showed no acute events overnight. Blood pressure is controlled now. Patient is cleared from cardiology standpoint. Medications reconciled medications and discharge medication was sent to pharmacy. PHYSICAL EXAMINATION: Patient is lying in the bed comfortably, no acute distress, awake alert and oriented.. HEENT: Normocephalic. Neck is supple. Pupils reactive. Nostrils clear. Oral cavity is moist. Ears reveal no drainage. Neck reveals no JVD, carotid bruits, or thyromegaly. CHEST EXAMINATION: Trachea is central. Symmetrical expansion. Lung ko clear to auscultation and percussion. CARDIAC: Normal S1, S2 with no gallops. No murmurs ABDOMEN: Soft. Bowel sounds normal. No organomegaly. No abdominal bruits. Extremities: reveal no edema. No clubbing or cyanosis Neurologically awake, alert, oriented x3 with well-coordinated movements. No focal deficits noted Skin: No rash or skin lesions. Psychiatric: Coperative. Nonsuicidal Musculoskeletal: No joint swelling or deformity. Normal range of motion. Vital Signs Temp 98.4 F 04/27/20 04:00 Pulse 84 04/27/20 04:00 Resp 14 04/27/20 04:00 BP 124/94 04/27/20 04:00 Pulse Ox 96 04/27/20 04:00 Intake & Output 04/26/20 04/27/20 04/27/20 18:59 06:59 18:59 Intake Total 1040 740 Balance 1040 740 Weight 54.5 kg Intake: Oral 1040 740 Other: Voiding Method Toilet Toilet # Voids 3 1 Patient Condition at Discharge: Good Plan - Discharge Summary New Discharge Prescriptions: New Aspirin 81 mg PO DAILY #30 chew Prasugrel [Effient] 10 mg PO DAILY #30 tab Atorvastatin [Lipitor] 80 mg PO HS #30 tab Metoprolol Tartrate [Lopressor] 50 mg PO BID #60 tab Nitroglycerin Sl Tabs [Nitrostat] 0.4 mg SUBLINGUAL Q5M PRN #30 tab PRN Reason: Chest Pain lisinopriL [Zestril] 2.5 mg PO DAILY #30 tab Continue Levonorgestrel-Ethin Estradiol [Lutera-28 Tablet] 1 tab PO DAILY Insulin Lispro [humaLOG] See Protocol SQ ACHS Insulin Glargine,Hum.rec.anlog [Basaglar Kwikpen U-100] 30 unit SQ HS Discontinued Atorvastatin [Lipitor] 20 mg PO DAILY Discharge Medication List Insulin Glargine,Hum.rec.anlog [Basaglar Kwikpen U-100] 30 unit SQ HS 04/24/20 [History] Insulin Lispro [humaLOG] See Protocol SQ ACHS 04/24/20 [History] Levonorgestrel-Ethin Estradiol [Lutera-28 Tablet] 1 tab PO DAILY 04/24/20 [History] Aspirin 81 mg PO DAILY #30 chew 04/27/20 [Rx] Atorvastatin [Lipitor] 80 mg PO HS #30 tab 04/27/20 [Rx] Metoprolol Tartrate [Lopressor] 50 mg PO BID #60 tab 04/27/20 [Rx] Nitroglycerin Sl Tabs [Nitrostat] 0.4 mg SUBLINGUAL Q5M PRN #30 tab 04/27/20 [Rx] Prasugrel [Effient] 10 mg PO DAILY #30 tab 04/27/20 [Rx] lisinopriL [Zestril] 2.5 mg PO DAILY #30 tab 04/27/20 [Rx] Follow up Appointment(s)/Referral(s): Lucinda Hay MD [Primary Care Provider] - 1-2 days Filippo Riley MD [STAFF PHYSICIAN] - 1 Week Patient Instructions/Handouts: Heart Attack (DC), Type 2 Diabetes Management for Adolescents (DC), Hypertension and Diabetes (GEN), Diabetes and Nutrition (DC), Type 2 Diabetes Management for Adults (ED) Discharge Disposition: HOME SELF-CARE
== END 2020-04-27 13:10 | disposition home or self-care (01) | DRG 247 ==
LOC: EC 17:14 → 2SICU 18:19
PROVIDERS: ADMIT Internal Medicine; ATTEND Internal Medicine
PROC: B2111ZZ Fluoroscopy of Multiple Coronary Arteries using Low Osmolar Contrast (ICD-10-PCS; principal; 2020-04-24 17:17)
PROC: 027034Z Dilation of Coronary Artery, One Artery with Drug-eluting Intraluminal Device, Percutaneous Approach (ICD-10-PCS; principal; 2020-04-24 17:17)
DX: I21.19 ST elevation (STEMI) myocardial infarction involving other coronary artery of inferior wall (principal); E78.5 Hyperlipidemia, unspecified; F17.200 Nicotine dependence, unspecified, uncomplicated; I25.10 Atherosclerotic heart disease of native coronary artery without angina pectoris; I10 Essential (primary) hypertension; E11.65 Type 2 diabetes mellitus with hyperglycemia; I44.7 Left bundle-branch block, unspecified; Z79.4 Long term (current) use of insulin; Z82.49 Family history of ischemic heart disease and other diseases of the circulatory system; Z79.899 Other long term (current) drug therapy; Z90.49 Acquired absence of other specified parts of digestive tract; Z98.891 History of uterine scar from previous surgery
CPT/HCPCS: 71045; 80048; 80069; 85025; 93306; 93454; 99285

== ENCOUNTER 2020-09-30 12:42 | Observation (INO) | payer OTHER ==
[2020-09-30] MEDS ORDERED: ASPIRIN 81 MG PO STA (13:09)
--- NOTE | 2020-09-30 13:15 | ED ---
Chest Pain HPI - General Chief Complaint: Chest Pain Stated Complaint: Chest pain Time Seen by Provider: 09/30/20 12:49 Source: patient Mode of arrival: wheelchair Limitations: no limitations - History of Present Illness Initial Comments: 35-year-old female of HTN, IDDMII, CAD with hx of [place] (came in as STEMI-right RCA) presenting today for chief complaint of chest X discomfort on and off 2 days. Patient states she's had chest discomfort 2 days on and off she states she really does not describe it she denies it being a pressure. She denies it being sharp ripping tearing but does not provide additional agitated despite multiple options provided. Patient denies shortness of breath leg swelling she denies unilateral calf pain she denies recent immobilization hemoptysis history of DVT or pulmonary embolism. Patient denies any jaw pain nausea vomiting diaphoresis she denies arm pain. Patient states she did have a myocardial infarction in April and had similar symptoms including chest discomfort and headaches. Patient states she has had slight headache on and off for the past 3 days. Patient is unsure of the vessel that was stented. Patient states she knows she had a cardiac catheterization. Patient denies any current chest pain she denies taking any nitroglycerin prior to arrival she states she flew she took a baby aspirin today. Patient sates that the headache and pretty mild she states she is not particularly concerned about that she denies him pulling on suddenly she denies a being long-lasting she denies having the worst headache of her life she denies a visual changes or diplopia she denies any weakness sensation deficits she denies feeling off balance or dizziness, she denies facial asymmetry. Patient states she believes she is on anticoagulation therapy - Related Data Home Medications Medication Instructions Recorded Confirmed Insulin Lispro [humaLOG] See Protocol SQ ACHS 04/24/20 09/30/20 Exenatide Microspheres [Bydureon 2 mg SQ MO 09/30/20 09/30/20 Pen] INSULIN LISPRO (HumaLOG) [humaLOG] 3 units SQ ACHS 09/30/20 09/30/20 Insulin Glargine,Hum.rec.anlog 35 unit SQ HS 09/30/20 09/30/20 [Lantus Solostar] Sharobel 0.35mg 1 tab PO DAILY 09/30/20 09/30/20 Previous Rx's Medication Instructions Recorded Aspirin 81 mg PO DAILY #30 chew 04/27/20 Atorvastatin [Lipitor] 80 mg PO HS #30 tab 04/27/20 Metoprolol Tartrate [Lopressor] 50 mg PO BID #60 tab 04/27/20 Nitroglycerin Sl Tabs [Nitrostat] 0.4 mg SUBLINGUAL Q5M PRN #30 tab 04/27/20 Prasugrel [Effient] 10 mg PO DAILY #30 tab 04/27/20 lisinopriL [Zestril] 2.5 mg PO DAILY #30 tab 04/27/20 Allergies Allergy/AdvReac Type Severity Reaction Status Date / Time No Known Allergies Allergy Verified 09/30/20 15:10 Review of Systems ROS Statement: Those systems with pertinent positive or pertinent negative responses have been documented in the HPI. ROS Other: All systems not noted in ROS Statement are negative. EKG Findings - EKG Comments: EKG Findings:: And regular rate 85 bpm, MA interval 178 ms, QR administration 98 ms, QT/QTC 380/461 ms. This is normal sinus there is no ST elevation or depression appreciated. There is no delta wave. Past Medical History Past Medical History: Diabetes Mellitus, Hyperlipidemia, Hypertension, Myocardial Infarction ([place]) History of Any Multi-Drug Resistant Organisms: None Reported Past Surgical History: Section, Cholecystectomy, Heart Catheterization With Stent Additional Past Surgical History / Comment(s): x2 c section Past Psychological History: No Psychological Hx Reported Smoking Status: Former smoker Past Alcohol Use History: None Reported Past Drug Use History: None Reported General Exam - General Exam Comments Initial Comments: General: The patient is awake and alert, in no distress Eye: +3 mm pupils are equal, round and reactive to light, extra-ocular movements are intact. No nystagmus. There is normal conjunctiva bilaterally. No signs of icterus. Ears, nose, mouth and throat: There are moist mucous membranes and no oral lesions. Neck: The neck is supple, there is no tenderness or JVD. Cardiovascular: There is a regular rate and rhythm. No murmur, rub or gallop is appreciated. Respiratory: Lungs are clear to auscultation, respirations are non-labored, breath sounds are equal. No wheezes, stridor, rales, or rhonchi. Gastrointestinal: Soft, non-distended, non-tender abdomen without masses or organomegaly noted. There is no rebound or guarding present. Musculoskeletal: Normal ROM, no tenderness. Strength 5/5. Sensation intact. Radidal and DP pulses equal bilaterally 2+. Neurological: A&O x 3. CN II-XII intact, There are no obvious motor or sensory deficits. Coordination appears grossly intact. Speech is normal. Skin: Skin is warm and dry and no rashes or lesions are noted. No LE edema, no calf pain or tenderness. Psychiatric: Cooperative, appropriate mood & affect, normal judgment. Limitations: no limitations Course Vital Signs 09/30/20 09/30/20 09/30/20 12:44 13:05 13:51 Temperature 98.2 F 99.4 F Pulse Rate 83 80 81 Pulse Rate [ Pulse Oximetery ] Respiratory 16 18 18 Rate Blood Pressure 149/81 139/103 142/90 Blood Pressure [Left Arm] O2 Sat by Pulse 99 98 97 Oximetry 09/30/20 09/30/20 16:26 17:52 Temperature 98.0 F Pulse Rate 80 Pulse Rate [ 88 Pulse Oximetery ] Respiratory 18 16 Rate Blood Pressure 109/66 Blood Pressure 142/82 [Left Arm] O2 Sat by Pulse 97 98 Oximetry Chest Pain MDM - MDM Ventricular rate 85 bpm, MA interval 178 ms, QR mandaeism 90 ms, QT/QTC 388/461ms this is a normal sinus ears no ST elevation or depression appreciated. 35-year-old female with history of previous STEMI in 2019 presenting for chest discomfort on and off x 3 days. not present on arrival. initial troponin (-). Patient cxr clear. lung sounds clear. Patient appear comfortable no disaphoresis nor distress. however given patient significant cardiac as well as past medical history she will be admitted on low intensity heparin (per attending recommendation) to medicine with cardiology on consultatino for chest pain r/o, further evaluation. Patient case discussed with Dr Morgan who is agreeable to care plan and admission-speaking with admitting provider. Disposition Clinical Impression: Chest discomfort, Headache Disposition: ADMITTED IP TO THIS HOSP Condition: Stable Is patient prescribed a controlled substance at d/c from ED?: No Time of Disposition: 14:31 Decision to Admit Reason: Admit from EC Decision Date: 09/30/20 Decision Time: 14:31
[2020-09-30 13:58] LABS: ALT 21 U/L (4-34); AST 17 U/L (14-36); African American GFR (CKD) >90 (>60 ml/min/1.73 sqM); Albumin 4.1 g/dL (3.5-5.0); Alkaline Phosphatase 122 U/L (38-126); Anion Gap 11 mmol/L; Blood Urea Nitrogen 12 mg/dL (7-17); Calcium 9.3 mg/dL (8.4-10.2); Carbon Dioxide 26 mmol/L (22-30); Chloride 99 mmol/L (98-107); Glucose 330 mg/dL (74-99); Magnesium 1.6 mg/dL (1.6-2.3); Non-African American GFR(CKD) >90 (>60 ml/min/1.73 sqM); Potassium 4.5 mmol/L (3.5-5.1); Sodium 136 mmol/L (137-145); Total Bilirubin 0.3 mg/dL (0.2-1.3); Total Protein 7.4 g/dL (6.3-8.2)
--- NOTE | 2020-09-30 13:58 | XR ---
EXAMINATION TYPE: XR chest 2V DATE OF EXAM: 09/30/2020 COMPARISON: 04/24/2020 HISTORY: 35-year-old female with chest pain TECHNIQUE: PA and lateral views FINDINGS: The cardiomediastinal silhouette, aorta, and pulmonary vasculature are within normal limits. Mild int erstitial prominence. No consolidation or pleural effusion IMPRESSION: Mild interstitial prominence could reflect bronchitis or asthma. No focal infiltrates seen.
[2020-09-30 14:04] LABS: INR 0.9 (<1.2); Partial Thromboplastin Time 22.3 sec (22.0-30.0); Prothrombin Time 9.4 sec (9.0-12.0)
[2020-09-30 14:14] LABS: Basophils # (A) 0.1 k/uL (0-0.2); Basophils % (A) 1 %; Eosinophils # (A) 0.5 k/uL (0-0.7); Eosinophils % (A) 4 %; HCT 45.2 % (34.0-46.0); HGB 15.2 gm/dL (11.4-16.0); Lymphocytes # (A) 3.4 k/uL (1.0-4.8); Lymphocytes % (A) 27 %; MCH 29.5 pg (25.0-35.0); MCHC 33.6 g/dL (31.0-37.0); MCV 87.8 fL (80.0-100.0); Mean Platelet Volume 8.6; Monocytes # (A) 0.6 k/uL (0-1.0); Monocytes % (A) 5 %; Neutrophils # (A) 8.1 k/uL (1.3-7.7); Neutrophils % (A) 63 %; Platelet Count 313 k/uL (150-450); RBC 5.15 m/uL (3.80-5.40); RDW 12.7 % (11.5-15.5); WBC 12.8 k/uL (3.8-10.6)
[2020-09-30] MEDS ORDERED: INSULIN REGULAR 100 UNIT/ML VIAL SQ ONE (14:27)
[2020-09-30] MEDS ORDERED: NALOXONE 0.4 MG/ML 1 ML VIAL IV PRN (14:28)
[2020-09-30] MEDS ORDERED: NITROGLYCERIN SL TABS 0.4 MG TAB SUBLINGUAL PRN (14:29)
[2020-09-30] MEDS ORDERED: HEPARIN SODIUM,PORCINE 5,000 UNIT/ML 1 ML VIAL IV ONE (14:37)
[2020-09-30] MEDS ORDERED: HEPARIN SOD,PORK IN 0.45% NACL 25,000 UNIT in 0.45% NACL 1 250ML.BAG IV SCH (14:45)
[2020-09-30 17:51] LABS: Glucose,Whole Blood 195 mg/dL (75-99)
[2020-09-30] MEDS ORDERED: TEMAZEPAM 15 MG CAP PO PRN (18:43)
[2020-09-30] MEDS ORDERED: ALPRAZolam 0.25 MG TAB PO PRN (18:43)
--- NOTE | 2020-09-30 19:38 | HP ---
HISTORY AND PHYSICAL DATE OF SERVICE: 09/30/2020 CHIEF COMPLAINT: Chest pain. HISTORY OF PRESENT ILLNESS: This 35-year-old woman with a past medical history of multiple medical problems, including diabetes mellitus, hypertension, hyperlipidemia, history of myocardial infarction, history of CAD and stent, being followed by Dr. Hay in the outpatient setting, was admitted last year with acute inferior wall myocardial infarction and the patient had a stent to the RCA placed. Currently the patient is complaining of on and off chest pains for the last couple of days at least, and today the patient had more chest discomfort in the anterior part of the chest which was similar to the pain which the patient suffered during the heart attack. The patient came to [facility] and was admitted for further evaluation and treatment. There is no history of any shortness of breath and no history of any radiation of the pain elsewhere or any associated sweating or palpitations. The patient had a slight headache on and off, and after admission the patient had basic labs, including troponin which was negative, and sodium was 136. The patient also had an EKG which was reviewed personally by me. It showed some peaked T-waves; otherwise no acute abnormalities. There is no history of any fever, rigor or chills at this time. PAST MEDICAL HISTORY: History of diabetes mellitus, hypertension, hyperlipidemia, history of myocardial infarction, CAD and stent. MEDICATIONS: Nitrostat, Lantus, Bydureon, Lipitor, Humalog, Effient, Zestril, Lopressor, aspirin. ALLERGIES: NONE. FAMILY HISTORY: No history of heart disease or strokes in the family. SOCIAL HISTORY: Patient continues to smoke. No history of alcohol intake. REVIEW OF SYSTEMS: ENT: No diminished hearing. No diminished vision. CARDIOVASCULAR SYSTEM: As mentioned earlier. RESPIRATORY SYSTEM: As mentioned earlier. GI: No nausea, vomiting, diarrhea. : No dysuria or retention. NERVOUS SYSTEM: No numbness, weakness. ALLERGY/IMMUNOLOGY: No asthma, hayfever. MUSCULOSKELETAL: As mentioned earlier. HEMATOLOGY/ONCOLOGY: No history of anemia. ENDOCRINE: As mentioned earlier. CONSTITUTIONAL: As mentioned earlier. DERMATOLOGY: Negative. RHEUMATOLOGY: Negative. PSYCHIATRY: As mentioned earlier. PHYSICAL EXAMINATION: Alert and oriented x3. Pulse 88, blood pressure 142/82, respirations 16, temperature 98 degrees, pulse ox 98% on room air. HEENT: Conjunctivae normal. NECK: No jugular venous distention. CARDIOVASCULAR SYSTEM: S1, S2 muffled. RESPIRATORY SYSTEM: Breath sounds diminished at the bases. No rhonchi. No crackles. ABDOMEN: Soft, non-tender. No mass palpable. LEGS: No edema. No swelling. NERVOUS SYSTEM: Higher functions as mentioned earlier. Moves all 4 limbs. No focal motor or sensory deficit. LYMPHATICS: No lymph node palpable in neck, axillae or groin. SKIN: No ulcer, rash, bleeding. JOINTS: No active deforming arthropathy. LABS: Labs at this time show WBC 6.8, hemoglobin 15.2, and glucose 330 and 195. ASSESSMENT: 1. Chest pain; possible unstable angina. 2. Diabetes mellitus, type 2. 3. Hyponatremia, mild. 4. Increased white count. 5. History of coronary artery disease, stent. 6. History of inferior wall myocardial infarction. 7. Hypertension. 8. Hyperlipidemia. 9. Cholecystectomy. 10.Continued ongoing nicotine dependence. 11.FULL CODE. RECOMMENDATIONS AND DISCUSSION: In this 35-year-old woman who presented with multiple complex medical issues, at this time I recommend to continue current medications, continue symptomatic treatment. Unstable angina protocol. Cardiology consultation. Further evaluation depending upon the blood work. Monitor blood sugars closely. Resume the home medications. Prognosis guarded. Further recommendations to follow. Recommend smoking cessation. A copy of this dictation is being forwarded to Dr. Hay, who is the primary physician. See orders for further details. MMODL / IJN: [id number] /
[2020-09-30 19:50] LABS: Glucose,Whole Blood 185 mg/dL (75-99)
[2020-09-30] MEDS: INSULIN ASPART (NovoLOG) 100 UNIT/ML VIAL SQ SCH ×2 (20:37→20:38)
[2020-09-30] MEDS: METOPROLOL TARTRATE 50 MG TAB PO SCH (20:37)
[2020-09-30] MEDS ORDERED: ATORVASTATIN 80 MG TAB PO SCH (21:00)
[2020-09-30] MEDS ORDERED: INSULIN DETEMIR (LEVEMIR) 100 UNIT/ML SYR SQ SCH (21:00)
[2020-09-30 22:11] LABS: Appearance,Urine Clear (Clear); Bilirubin,Urine Negative (Negative); Blood,Urine Negative (Negative); Color,Urine Yellow; Glucose,Urine (UA) 1+ (Negative); Hyaline Casts,Urine 4 /lpf (0-2); Ketones,Urine Negative (Negative); Leukocyte Esterase,Urine Negative (Negative); Mucus,Urine Few /hpf; Nitrite,Urine Negative (Negative); Protein,Urine 3+ (Negative); RBC,Urine <1 /hpf (0-5); Specific Gravity,Urine 1.039 (1.001-1.035); Squamous Epithelial Cell,Urine 4 /hpf (0-4); WBC,Urine 2 /hpf (0-5)
[2020-09-30] MEDS: HEPARIN SODIUM,PORCINE 5,000 UNIT/ML 1 ML VIAL IV PRN (22:51)
[2020-10-01] MEDS: HEPARIN SODIUM,PORCINE 5,000 UNIT/ML 1 ML VIAL IV PRN (06:09)
[2020-10-01 06:43] LABS: Glucose,Whole Blood 187 mg/dL (75-99)
[2020-10-01] MEDS ORDERED: PANTOPRAZOLE 40 MG TABLET PO SCH (07:30)
[2020-10-01 08:10] VITALS: BP 113/66; PULSE 54; RESP 15; TEMP 97.3
[2020-10-01 08:50] LABS: Basophils # (A) 0.08 X 10*3/uL (0.00-0.10); Basophils % (A) 0.7 %; Eosinophils # (A) 0.54 X 10*3/uL (0.04-0.35); Eosinophils % (A) 4.5 %; HCT 43.1 % (37.2-46.3); HGB 14.3 g/dL (12.0-15.0); Lymphocytes # (A) 4.35 X 10*3/uL (0.90-5.00); Lymphocytes % (A) 36.6 %; MCHC 33.2 g/dL (32.0-37.0); MCV 90.5 fL (80.0-97.0); Mean Platelet Volume 11.8 fL (9.5-12.2); Monocytes # (A) 0.78 X 10*3/uL (0.20-1.00); Monocytes % (A) 6.6 %; Neutrophils % (A) 51.2 %; Platelet Count 324 X 10*3/uL (140-440); RBC 4.76 X 10*6/uL (4.10-5.20); RDW 12.4 % (11.5-14.5)
[2020-10-01] MEDS ORDERED: ASPIRIN 325 MG TAB PO SCH (09:00)
[2020-10-01] MEDS ORDERED: PRASUGREL 10 MG TAB PO SCH (09:00)
--- NOTE | 2020-10-01 10:09 | P.CRDCN ---
History of Present Illness Consult date: 10/01/20 History of present illness: CHIEF COMPLAINT: Chest pain HISTORY OF PRESENT ILLNESS: This is a 35-year-old female with a past medical history significant for coronary artery disease with recent PCI to the distal RCA in April 2020, diabetes mellitus, hypertension, hyperlipidemia, and nicotine dependence. Patient follows in the office with Dr. Domingo. We have been asked to see the patient in consultation for chest pain. Patient examined this morning at the bedside. Patient reports she has been having chest pain for the last 2-3 days. She states the pain is intermittent. The pain is located right in the middle of her chest. The patient is unable to describe are characterized the pain. She denied any radiation to her arm back or jaw. She denied any shortness of breath. Pain is not worse with a deep breath or with movement. Patient states the pain feels similar to when she had her stent placed last year but not as intense. Patient states that she did take any medications to help with the discomfort. She states when she came to the emergency room, the resolved spontaneously. She has had no further episodes of chest discomfort since being in the hospital. Patient states she has been compliant with her medications since having her stent placed in April. Patient reports that she continues to smoke and is currently smoking 1 pack per day. DIAGNOSTICS: EKG reveals sinus mechanism with nonspecific ST-T wave changes Chest xray mild interstitial prominence could reflect bronchitis or asthma. No focal infiltrates seen. Laboratory data: WBC 11.9. Hemoglobin 14.3. Platelet count 324. Sodium 136. Potassium 4.5. BUN 12. Creatinine 0.59. Magnesium 1.6. BNP 17. Troponin negative 3. Current home cardiac medications include Lipitor 80 mg daily, Effient 10 mg edwige ly, lisinopril 2.5 mg daily, aspirin 81 mg daily, and metoprolol tartrate 50 mg twice a day Patient underwent cardiac catheterization in April 2020 with PCI to the distal RCA. Patient was also noted to have a 40-50% lesion of the diagonal 2. REVIEW OF SYSTEMS: At the time of my exam: CONSTITUTIONAL: Denies fever or chills. HEENT: Denies blurred vision, vision changes, or eye pain. Denies hemoptysis CARDIOVASCULAR: Denies chest pain, orthopnea, PND or palpitations RESPIRATORY: No shortness of breath. GASTROINTESTINAL: Denies abdominal pain. Denies nausea or vomiting. HEMATOLOGIC: Denies bleeding disorders. GENITOURINARY: Denies any blood in urine. SKIN: Denies pruitis. Denies rash. PHYSICAL EXAM: VITAL SIGNS: Reviewed. GENERAL: Well-developed in no acute distress. HEENT: Head is normocephalic. Pupils are equal, round. Sclerae anicteric. Mucous membranes of the mouth are moist. Neck supple. No JVD or thyromegaly LUNGS: Respirations even and unlabored. Lungs essentially clear to auscultation bilaterally. HEART: Regular rate and rhythm. S1 and S2 heard. ABDOMEN: Soft. Nondistended. Nontender. EXTREMITIES: Normal range of motion. No clubbing or cyanosis. Peripheral pulses intact. No lower extremity edema NEUROLOGIC: Awake and alert. Oriented x 3. ASSESSMENT: Chest pain Coronary artery disease with PCI to RCA, April 2020 Hypertension Hyperlipidemia Diabetes mellitus, type II Nicotine dependence, patient smokes 1 pack per day PLAN: Discontinue IV heparin Obtain 2-D echo to assess cardiac structure and function Resume home cardiac medications Smoking cessation encouraged Obtain stress echocardiogram to assess for ischemia Further recommendations any patient course Nurse practitioner note has been reviewed by physician. Signing provider agrees with the documented findings, assessment, and plan of care. Past Medical History Past Medical History: Diabetes Mellitus, Hyperlipidemia, Hypertension, Myocar dial Infarction ([place]) Last Myocardial Infarction Date:: 04/2020 History of Any Multi-Drug Resistant Organisms: None Reported Past Surgical History: Section, Cholecystectomy, Heart Catheterization With Stent Additional Past Surgical History / Comment(s): x2 c section Date of Last Stent Placement:: 04/2020 Past Psychological History: No Psychological Hx Reported Smoking Status: Current every day smoker Past Alcohol Use History: None Reported Past Drug Use History: None Reported Medications and Allergies Home Medications Medication Instructions Recorded Confirmed Type Insulin Lispro [humaLOG] See Protocol SQ ACHS 04/24/20 09/30/20 History Aspirin 81 mg PO DAILY #30 chew 04/27/20 09/30/20 Rx Atorvastatin [Lipitor] 80 mg PO HS #30 tab 04/27/20 09/30/20 Rx Metoprolol Tartrate [Lopressor] 50 mg PO BID #60 tab 04/27/20 09/30/20 Rx Nitroglycerin Sl Tabs [Nitrostat] 0.4 mg SUBLINGUAL Q5M PRN #30 tab 04/27/20 09/30/20 Rx Prasugrel [Effient] 10 mg PO DAILY #30 tab 04/27/20 09/30/20 Rx lisinopriL [Zestril] 2.5 mg PO DAILY #30 tab 04/27/20 09/30/20 Rx Exenatide Microspheres [Bydureon 2 mg SQ MO 09/30/20 09/30/20 History Pen] INSULIN LISPRO (HumaLOG) [humaLOG] 3 units SQ ACHS 09/30/20 09/30/20 History Insulin Glargine,Hum.rec.anlog 35 unit SQ HS 09/30/20 09/30/20 History [Lantus Solostar] Sharobel 0.35mg 1 tab PO DAILY 09/30/20 09/30/20 History Allergies Allergy/AdvReac Type Severity Reaction Status Date / Time No Known Allergies Allergy Verified 09/30/20 15:10 Physical Exam Vitals: Vital Signs Temp Pulse Pulse Resp BP BP Pulse Ox 10/01/20 07:00 97.3 F L 54 L 15 113/66 96 10/01/20 01:54 98.1 F 84 16 124/86 99 09/30/20 19:42 97.9 F 82 18 153/92 100 09/30/20 17:52 98.0 F 88 16 142/82 98 09/30/20 16:26 80 18 109/66 97 09/30/20 13:51 81 18 142/90 97 09/30/20 13:05 99.4 F 80 18 139/103 98 09/30/20 12:44 98.2 F 83 16 149/81 99 Intake and Output 09/30/20 10/01/20 10/01/20 22:59 06:59 14:59 Intake Total 74.465 89.403 Balance 74.465 89.403 Intake: Intake, IV Titration 74.465 89.403 Amount Heparin Sod,Pork in 0.45% 74.465 89.403 NaCl 25,000 unit In 0.45 % NaCl 1 250ml.bag @ 12 UNITS/KG/HR 9.798 mls/hr IV .Q24H [facility] Rx#: [id number] Other: Voiding Method Toilet Toilet Toilet # Voids 1 2 Weight 81.647 kg Results 10/01/20 04:46 09/30/20 13:19 Cardiac Enzymes 09/30/20 09/30/20 09/30/20 Range/Units 13:19 13:19 16:27 AST 17 (14-36) U/L Troponin I <0.012 <0.012 (0.000-0.034) ng/mL 09/30/20 Range/Units 18:59 AST (14-36) U/L Troponin I <0.012 (0.000-0.034) ng/mL Coagulation 09/30/20 09/30/20 10/01/20 Range/Units 13:19 21:36 04:46 PT 9.4 (9.0-12.0) sec APTT 22.3 24.9 30.9 H (22.0-30.0) sec CBC 09/30/20 10/01/20 Range/Units 13:19 04:46 WBC 12.8 H 11.90 H (3.8-10.6) k/uL RBC 5.15 4.76 (3.80-5.40) m/uL Hgb 15.2 14.3 (11.4-16.0) gm/dL Hct 45.2 43.1 (34.0-46.0) % Plt Count 313 324 (150-450) k/uL Comprehensive Metabolic Panel 09/30/20 Range/Units 13:19 Sodium 136 L (137-145) mmol/L Potassium 4.5 (3.5-5.1) mmol/L Chloride 99 (98-107) mmol/L Carbon Dioxide 26 (22-30) mmol/L BUN 12 (7-17) mg/dL Creatinine 0.59 (0.52-1.04) mg/dL Glucose 330 H (74-99) mg/dL Calcium 9.3 (8.4-10.2) mg/dL AST 17 (14-36) U/L ALT 21 (4-34) U/L Alkaline Phosphatase 122 (38-126) U/L Total Protein 7.4 (6.3-8.2) g/dL Albumin 4.1 (3.5-5.0) g/dL Current Medications Generic Name Dose Route Start Last Admin Trade Name Freq PRN Reason Stop Dose Admin Alprazolam 0.25 mg 09/30/20 18:43 Alprazolam 0.25 Mg Tab PO TID PRN Anxiety Aspirin 81 mg 10/02/20 09:00 Aspirin 81 Mg PO DAILY [facility] Atorvastatin Calcium 80 mg 09/30/20 21:00 09/30/20 20:37 Atorvastatin 80 Mg Tab PO 80 mg HS ALBERTO Administration Heparin Sodium (Porcine) 0 unit 09/30/20 14:37 10/01/20 06:09 Heparin Sodium,Porcine 5,000 Unit/Ml 1 Ml Vial IV 4,000 unit PER PROTOCOL PRN Administration Low PTT Protocol Insulin Aspart 3 unit 09/30/20 21:00 09/30/20 20:37 Insulin Aspart (Novolog) 100 Unit/Ml Vial SQ 3 unit ACHS ALBERTO Administration Insulin Aspart 0 unit 09/30/20 21:00 09/30/20 20:38 Insulin Aspart (Novolog) 100 Unit/Ml Vial SQ 2 unit ACHS [facility] Administration Protocol Insulin Detemir 35 unit 09/30/20 21:00 09/30/20 20:37 Insulin Detemir (Levemir) 100 Unit/Ml Syr SQ 35 unit HS [facility] Administration Lisinopril 2.5 mg 10/01/20 09:00 Lisinopril 2.5 Mg Tab PO DAILY [facility] Metoprolol Tartrate 50 mg 09/30/20 21:00 09/30/20 20:37 Metoprolol Tartrate 50 Mg Tab PO 50 mg BID ALBERTO Administration Naloxone HCl 0.2 mg 09/30/20 14:28 Naloxone 0.4 Mg/Ml 1 Ml Vial IV Q2M PRN Opioid Reversal Nitroglycerin 0.4 mg 09/30/20 14:29 Nitroglycerin Sl Tabs 0.4 Mg Tab SUBLINGUAL Q5M PRN Chest Pain Pantoprazole Sodium 40 mg 10/01/20 07:30 Pantoprazole 40 Mg Tablet PO AC-BRKFST [facility] Prasugrel 10 mg 10/01/20 09:00 Prasugrel 10 Mg Tab PO DAILY [facility] Temazepam 15 mg 09/30/20 18:43 Temazepam 15 Mg Cap PO HS PRN Insomnia Intake and Output 09/30/20 10/01/20 10/01/20 22:59 06:59 14:59 Intake Total 74.465 89.403 Balance 74.465 89.403 Intake: Intake, IV Titration 74.465 89.403 Amount Heparin Sod,Pork in 0.45% 74.465 89.403 NaCl 25,000 unit In 0.45 % NaCl 1 250ml.bag @ 12 UNITS/KG/HR 9.798 mls/hr IV .Q24H [facility] Rx#: [id number] Other: Voiding Method Toilet Toilet Toilet # Voids 1 2 Weight 81.647 kg 10/01/20 04:46 09/30/20 13:19
[2020-10-01] MEDS: INSULIN ASPART (NovoLOG) 100 UNIT/ML VIAL SQ SCH ×4 (10:18→11:37)
--- NOTE | 2020-10-01 11:04 | ECHOF ---
Referral Reason:LV function, chest pain MEASUREMENTS -------- HEIGHT: 177.8 cm WEIGHT: 81.6 kg BP: 124/86 RVIDd: 3.7 cm (< 3.3) IVSd: 1.3 cm (0.6 - 1.1) LVIDd: 4.5 cm (3.9 - 5.3) LVPWd: 1.3 cm (0.6 - 1.1) IVSs: 1.9 cm LVIDs: 3.2 cm LVPWs: 1.7 cm LAESV Index (A-L): 16.36 ml/m Ao Diam: 3.2 cm (2.0 - 3.7) AV Cusp: 2.3 cm (1.5 - 2.6) MV EXCURSION: 16.312 mm (> 18.000) MV EF SLOPE: 92 mm/s (70 - 150) EPSS: 0.6 cm MV E Rehan: 0.88 m/s MV DecT: 141 ms MV A Rehan: 0.57 m/s MV E/A Ratio: 1.54 RAP: 5.00 mmHg RVSP: 14.63 mmHg FINDINGS -------- Sinus rhythm. This was a technically adequate study. The left ventricular size is normal. There is mild concentric left ventricular hypertrophy. Overa ll left ventricular systolic function is low-normal with, an EF between 50 - 55 %. The diastolic fi lling pattern is normal for the age of the patient 12.35. The right ventricle is mildly enlarged. Normal LA size by volume 22+/-6 ml/m2. The right atrial size is normal. Interatrial and interventricular septum intact. The aortic valve is trileaflet and appears structurally normal. There is no evidence of aortic regu rgitation. There is no evidence of aortic stenosis. Mild mitral regurgitation is present. Mild tricuspid regurgitation present. There is no evidence of pulmonary hypertension. The right v entricular systolic pressure, as measured by Doppler, is 14.63mmHg. Trace/mild (physiologic) pulmonic regurgitation. The aortic root size is normal. There is no pericardial effusion. CONCLUSIONS -------- 1. The left ventricular size is normal. 2. There is mild concentric left ventricular hypertrophy. 3. Overall left ventricular systolic function is low-normal with, an EF between 50 - 55 %. 4. The diastolic filling pattern is normal for the age of the patient 12.35 5. The right ventricle is mildly enlarged. 6. Mild mitral regurgitation is present. 7. Mild tricuspid regurgitation present. 8. Trace/mild (physiologic) pulmonic regurgitation. [employer] SALES CONSULTANT: Radha Flores RDCS
[2020-10-01 11:26] LABS: Glucose,Whole Blood 198 mg/dL (75-99)
[2020-10-01] MEDS: METOPROLOL TARTRATE 50 MG TAB PO SCH (11:37)
[2020-10-01 11:44] LABS: African American GFR (CKD) 111.5 (60.0-200.0); Anion Gap 8.7 mmol/L (4.00-12.00); BUN/Creat Ratio 17.5 Ratio (12.00-20.00); Calcium 8.8 mg/dL (8.7-10.3); Carbon Dioxide 26.3 mmol/L (21.6-31.8); Chol/HDL Ratio 6.53; Non-African American GFR(CKD) 96.2 (60.0-200.0); Potassium 3.9 mmol/L (3.5-5.5)
--- NOTE | 2020-10-01 12:05 | ECHOS ---
STRESS ECHOCARDIOGRAM DATE OF SERVICE: 10/01/2020 INDICATIONS: Chest pain. MEDICATIONS: BASELINE HEART RATE: 71 BASELINE BLOOD PRESSURE: 138/96 MAXIMUM HEART RATE: 172 MAXIMUM BLOOD PRESSURE: 229/71 85% MPHR: 158 100% MPHR: 186 METS: 11.5 MAXIMUM STAGE REACHED: IV TOTAL EXERCISE TIME: 9 minutes CLINICAL INFORMATION: STRESS DATA: Heart rate 71, pressure is 138/96 mmHg. Baseline EKG showed sinus mechanism. The patient exercised on the treadmill according to Dick protocol for a total of 9 minutes and achieved 11.5 METs. The max heart rate was 172, which is about which is about 92% of maximum predicted heart rate. Maximum blood pressure was 229/71 mmHg. Clinically, the patient did not have any symptoms of chest pain or chest discomfort. The EKG showed about 0.[address]-segment depression noted on recovery. Echocardiogram images from parasternal long axis view, parasternal short axis view, apical 4 chamber and apical 2 chambers were obtained at the baseline images, at the peak of the heart rate as well as on recovery and the echocardiogram images showed good augmentation in the left ventricular systolic function without any evidence of wall motion abnormalities concerning for ischemia. CONCLUSION: 1. Excellent exercise tolerance. 2. Exaggerated blood pressure in response to exercise. 3. Mild EKG changes in response to exercise. 4. Normal echocardiogram in response to exercise. MMODL / IJN: [id number] /
[2020-10-02] MEDS ORDERED: ASPIRIN 81 MG PO SCH (09:00)
--- NOTE | 2020-10-02 09:43 | P.DS ---
Providers Date of admission: 09/30/20 14:37 Expected date of discharge: 10/01/20 Attending physician: Laxmi Jackson Consults: 09/30/20 14:30 Consult Physician Urgent Consulting Provider: Vicente Domingo Consult Reason/Comments: chest discomfort Do you want consulting provider notified?: Yes Primary care physician: Lucinda Hay Hospital Course: Final diagnosis Chest pain, possible unstable angina Diabetes mellitus type 2 Hyponatremia, mild increased white count history of coronary artery disease, stent history of inferior wall myocardial infarction Hypertension Hyperlipidemia Cholecystectomy Continued ongoing nicotine dependence Full code Discharge disposition Patient is being discharged in a stable condition with guarded prognosis to home. Patient will follow-up with Dr. Lucinda Hay in the outpatient setting upon discharge. Patient is also instructed to follow-up with her etiology Dr. Domingo in the outpatient setting. Total time taken is greater than 35 minutes. Hospital course This is a 35-year-old female who was recently admitted with chest pain and was being closely monitored. Patient does have an extensive medical history of hypertension, myocardial infarction, history of CAD with stents, and diabetes mellitus. Cardiology evaluated the patient and underwent stress echo showing a negative stress test with elevated blood pressures although normalized. Echo shows mild concentric left ventricular hypertrophy with overall LV systolic function is low to normal with an EF between 50 and 55%, some mild mitral and tricuspid regurgitation present. Patient will follow-up outpatient with her cna Dr. Domingo in 1-2 weeks. Currently no reports of chest pain, shortness of breath, or palpitations. Patient is afebrile. No reports of nausea or vomiting and patient is tolerating diet. Patient is asking to go home today. Patient will be discharged home today. On exam vital signs are stable. Cardio S1, S2 are muffled. Respiratory system shows diminished breath sounds at the bases with no wheezing or rhonchi noted. Abdomen is soft and nontender. Nervous system shows no focal deficits. Please refer to medication reconciliation sheet for a list of medications. Patient Condition at Discharge: Stable Plan - Discharge Summary Discharge Rx Participant: No New Discharge Prescriptions: Continue Insulin Lispro [humaLOG] See Protocol SQ ACHS Aspirin 81 mg PO DAILY #30 chew Prasugrel [Effient] 10 mg PO DAILY #30 tab Atorvastatin [Lipitor] 80 mg PO HS #30 tab Metoprolol Tartrate [Lopressor] 50 mg PO BID #60 tab Nitroglycerin Sl Tabs [Nitrostat] 0.4 mg SUBLINGUAL Q5M PRN #30 tab PRN Reason: Chest Pain lisinopriL [Zestril] 2.5 mg PO DAILY #30 tab INSULIN LISPRO (HumaLOG) [humaLOG] 3 units SQ ACHS Insulin Glargine,Hum.rec.anlog [Lantus Solostar] 35 unit SQ HS Sharobel 0.35mg 1 tab PO DAILY Exenatide Microspheres [Bydureon Pen] 2 mg SQ MO Discharge Medication List Insulin Lispro [humaLOG] See Protocol SQ ACHS 04/24/20 [History] Aspirin 81 mg PO DAILY #30 chew 04/27/20 [Rx] Atorvastatin [Lipitor] 80 mg PO HS #30 tab 04/27/20 [Rx] Metoprolol Tartrate [Lopressor] 50 mg PO BID #60 tab 04/27/20 [Rx] Nitroglycerin Sl Tabs [Nitrostat] 0.4 mg SUBLINGUAL Q5M PRN #30 tab 04/27/20 [Rx] Prasugrel [Effient] 10 mg PO DAILY #30 tab 04/27/20 [Rx] lisinopriL [Zestril] 2.5 mg PO DAILY #30 tab 04/27/20 [Rx] Exenatide Microspheres [Bydureon Pen] 2 mg SQ MO 09/30/20 [History] INSULIN LISPRO (HumaLOG) [humaLOG] 3 units SQ ACHS 09/30/20 [History] Insulin Glargine,Hum.rec.anlog [Lantus Solostar] 35 unit SQ HS 09/30/20 [History] Sharobel 0.35mg 1 tab PO DAILY 09/30/20 [History] Follow up Appointment(s)/Referral(s): Lucinda Hay MD [Primary Care Provider] - 10/06/20 2:45 pm Vicente Domingo DO [STAFF PHYSICIAN] - 1 Week Patient Instructions/Handouts: Chest Pain (DC) Activity/Diet/Wound Care/Special Instructions: Activity Limited until follow-up follow up with primary care provider upon discharge Follow-up cardiology outpatient continue heart healthy diet Discharge Disposition: HOME SELF-CARE
== END 2020-10-01 13:16 | disposition home or self-care (01) ==
LOC: EC 12:42 → 6NMEDSUR 14:37
PROVIDERS: ADMIT Hospitalist; ATTEND Hospitalist
DX: R07.89 Other chest pain (principal); E11.9 Type 2 diabetes mellitus without complications; E87.1 Hypo-osmolality and hyponatremia; D72.829 Elevated white blood cell count, unspecified; E78.5 Hyperlipidemia, unspecified; I11.9 Hypertensive heart disease without heart failure; I25.2 Old myocardial infarction; I25.10 Atherosclerotic heart disease of native coronary artery without angina pectoris; F17.210 Nicotine dependence, cigarettes, uncomplicated; Z79.4 Long term (current) use of insulin; Z79.82 Long term (current) use of aspirin; Z79.899 Other long term (current) drug therapy; Z95.5 Presence of coronary angioplasty implant and graft; Z79.02 Long term (current) use of antithrombotics/antiplatelets; Z20.822 Contact with and (suspected) exposure to COVID-19; Z90.49 Acquired absence of other specified parts of digestive tract
CPT/HCPCS: 96376 ×3; 96366 ×3; 93005 ×2; 96365; 99285; 36415; 93306; 93351; 83880; 80061; 80053; 80048; 83735; 84484; 85025 ×2; 85610; 85730 ×2; 81001; 81025; 83721; 87635; 71046; G0378 ×2; J1644 ×3

== ENCOUNTER → 2021-06-22 | Outpatient (CLI) | payer OTHER ==
[2021-06-22 13:42] LABS: ALT 17 U/L (8-44); AST 14 U/L (13-35); Chol/HDL Ratio 4.56 Ratio; LDL Cholesterol,Calculated 53.1 mg/dL (0.0-131.0)
== END | disposition home or self-care (01) ==
LOC: LABWHC1 07:30
PROVIDERS: ATTEND Internal Medicine
DX: E78.2 Mixed hyperlipidemia (principal)
CPT/HCPCS: 36415; 80061; 84450; 84460

== ENCOUNTER 2022-05-21 17:16 | Emergency (ER) | payer OTHER ==
[2022-05-21 17:23] VITALS: TEMP 98.2
--- NOTE | 2022-05-21 19:39 | ED ---
General Adult HPI - General Chief complaint: Abdominal Pain Stated complaint: abd pain Time Seen by Provider: 05/21/22 19:27 Source: patient, RN notes reviewed, old records reviewed Mode of arrival: ambulatory Limitations: no limitations - History of Present Illness Initial comments: This is a well-appearing 37-year-old female that presents with complaints of right flank pain, low back pain and dysuria for 2 days. States she has had chills but no documented fever. Denies any vomiting or diarrhea. She did go to urgent care and had urinalysis tested. States that she was given a prescription for ultrasound to rule out kidney stone. Patient is a pack-a-day smoker with a history of diabetes, hypertension, NE, and cholecystectomy -: days(s) (2) Location: back (right flank) Radiation: back (low back) Severity scale (1-10): 0 Consistency: now resolved Associated Symptoms: other (Dysuria) Treatments Prior to Arrival: other (sent for u/s from urgent care, given IM injection of pain meds) - Related Data Home Medications Medication Instructions Recorded Confirmed Insulin Lispro [humaLOG] See Protocol SQ ACHS PRN 04/24/20 05/21/22 Insulin Glargine,Hum.rec.anlog 30 unit SQ HS 09/30/20 05/21/22 [Lantus Solostar Pen] Cephalexin [Keflex] 500 mg PO TID 05/21/22 05/21/22 Metoprolol Tartrate [Lopressor] 50 mg PO BID-W/MEALS 05/21/22 05/21/22 Previous Rx's Medication Instructions Recorded Aspirin 81 mg PO DAILY #30 chew 04/27/20 Atorvastatin [Lipitor] 80 mg PO HS #30 tab 04/27/20 Nitroglycerin Sl Tabs [Nitrostat] 0.4 mg SUBLINGUAL Q5M PRN #30 tab 04/27/20 lisinopriL [Zestril] 2.5 mg PO DAILY #30 tab 04/27/20 Allergies Allergy/AdvReac Type Severity Reaction Status Date / Time No Known Allergies Allergy Verified 05/21/22 20:35 Review of Systems ROS Statement: Those systems with pertinent positive or pertinent negative responses have been documented in the HPI. ROS Other: All systems not noted in ROS Statement are negative. Past Medical History Past Medical History: Diabetes Mellitus, Hyperlipidemia, Hypertension, Myocardial Infarction (NE) Last Myocardial Infarction Date:: 04/2020 History of Any Multi-Drug Resistant Organisms: None Reported Past Surgical History: Section, Cholecystectomy, Heart Catheterization With Stent Additional Past Surgical History / Comment(s): x2 c section Date of Last Stent Placement:: 04/2020 Past Psychological History: No Psychological Hx Reported Smoking Status: Current every day smoker Past Alcohol Use History: None Reported Past Drug Use History: None Reported General Exam Limitations: no limitations General appearance: alert, in no apparent distress Head exam: Absent: atraumatic Respiratory exam: Present: normal lung sounds bilaterally. Absent: respiratory distress, accessory muscle use Cardiovascular Exam: Present: tachycardia Back exam: Absent: tenderness, CVA tenderness (R), CVA tenderness (L), rash noted Neurological exam: Present: alert, oriented X3, normal gait Psychiatric exam: Present: normal affect, normal mood Skin exam: Present: warm, dry, intact, normal color. Absent: cyanosis, diaphoretic, petechiae, pallor Course Vital Signs 05/21/22 05/21/22 05/21/22 17:20 20:12 22:00 Temperature 98.2 F Pulse Rate 110 H 60 60 Respiratory 20 16 20 Rate Blood Pressure 165/95 140/86 130/60 O2 Sat by Pulse 98 98 98 Oximetry 05/21/22 22:08 Temperature Pulse Rate 90 Respiratory 20 Rate Blood Pressure 120/60 O2 Sat by Pulse 98 Oximetry Medical Decision Making - Medical Decision Making Urinalysis shows UTI with positive nitrites, bacteria and 58 white blood cells. There is evidence of leukocytosis. Blood glucose level is 396. Ultrasound shows no evidence of renal mass or obstruction. No evidence of hydronephrosis. KUB x-ray shows a nonacute abdomen with no abnormal calcifications. Patient was given a gram of Rocephin and IV fluids in the emergency room. States that she has not had pain since given the injection at the office today. She denies any vomiting or fevers. She was already prescribed Keflex by her doctor today and was directed to take the medication and follow-up with her doctor next week. Return to the emergency room with any new or concerning symptoms including fevers, back pain, persistent nausea vomiting. She was also directed to follow up with her primary care doctor regarding her uncontrolled diabetes. She is agreeable to this plan of care. family and bedside. VSS. Case discussed with Dr. Olson. - Lab Data Result diagrams: 05/21/22 20:01 05/21/22 20:01 Lab Results 05/21/22 05/21/22 05/21/22 Range/Units 20:01 20:01 20:01 WBC 13.8 H (3.8-10.6) k/uL RBC 5.25 (3.80-5.40) m/uL Hgb 16.4 H (11.4-16.0) gm/dL Hct 46.9 H (34.0-46.0) % MCV 89.4 (80.0-100.0) fL MCH 31.3 (25.0-35.0) pg MCHC 35.0 (31.0-37.0) g/dL RDW 12.6 (11.5-15.5) % Plt Count 353 (150-450) k/uL MPV 9.2 Neutrophils % 66 % Lymphocytes % 25 % Monocytes % 5 % Eosinophils % 3 % Basophils % 1 % Neutrophils # 9.1 H (1.3-7.7) k/uL Lymphocytes # 3.4 (1.0-4.8) k/uL Monocytes # 0.7 (0-1.0) k/uL Eosinophils # 0.4 (0-0.7) k/uL Basophils # 0.2 (0-0.2) k/uL Sodium (137-145) mmol/L Potassium (3.5-5.1) mmol/L Chloride (98-107) mmol/L Carbon Dioxide (22-30) mmol/L Anion Gap mmol/L BUN (7-17) mg/dL Creatinine (0.52-1.04) mg/dL Est GFR (CKD-EPI)AfAm (>60 ml/min/1.73 sqM) Est GFR (CKD-EPI)NonAf (>60 ml/min/1.73 sqM) Glucose (74-99) mg/dL Calcium (8.4-10.2) mg/dL Urine Color Yellow Urine Appearance Cloudy H (Clear) Urine pH 5.5 (5.0-8.0) Ur Specific [place] 1.035 (1.001-1.035) Urine Protein 3+ H (Negative) Urine Glucose (UA) 4+ H (Negative) Urine Ketones Negative (Negative) Urine Blood Moderate H (Negative) Urine Nitrite Positive H (Negative) Urine Bilirubin Negative (Negative) Urine Urobilinogen <2.0 (<2.0) mg/dL Ur Leukocyte Esterase Small H (Negative) Urine RBC 14 H (0-5) /hpf Urine WBC 58 H (0-5) /hpf Urine WBC Clumps Occasional H (None) /hpf Ur Squamous Epith Cells 4 (0-4) /hpf Urine Bacteria Rare H (None) /hpf Urine Mucus Rare H (None) /hpf Urine HCG, Qual Not Detected (Not Detectd) 05/21/22 Range/Units 20:01 WBC (3.8-10.6) k/uL RBC (3.80-5.40) m/uL Hgb (11.4-16.0) gm/dL Hct (34.0-46.0) % MCV (80.0-100.0) fL MCH (25.0-35.0) pg MCHC (31.0-37.0) g/dL RDW (11.5-15.5) % Plt Count (150-450) k/uL MPV Neutrophils % % Lymphocytes % % Monocytes % % Eosinophils % % Basophils % % Neutrophils # (1.3-7.7) k/uL Lymphocytes # (1.0-4.8) k/uL Monocytes # (0-1.0) k/uL Eosinophils # (0-0.7) k/uL Basophils # (0-0.2) k/uL Sodium 137 (137-145) mmol/L Potassium 3.4 L (3.5-5.1) mmol/L Chloride 91 L (98-107) mmol/L Carbon Dioxide 29 (22-30) mmol/L Anion Gap 17 mmol/L BUN 14 (7-17) mg/dL Creatinine 0.66 (0.52-1.04) mg/dL Est GFR (CKD-EPI)AfAm >90 (>60 ml/min/1.73 sqM) Est GFR (CKD-EPI)NonAf >90 (>60 ml/min/1.73 sqM) Glucose 396 H (74-99) mg/dL Calcium 9.8 (8.4-10.2) mg/dL Urine Color Urine Appearance (Clear) Urine pH (5.0-8.0) Ur Specific [place] (1.001-1.035) Urine Protein (Negative) Urine Glucose (UA) (Negative) Urine Ketones (Negative) Urine Blood (Negative) Urine Nitrite (Negative) Urine Bilirubin (Negative) Urine Urobilinogen (<2.0) mg/dL Ur Leukocyte Esterase (Negative) Urine RBC (0-5) /hpf Urine WBC (0-5) /hpf Urine WBC Clumps (None) /hpf Ur Squamous Epith Cells (0-4) /hpf Urine Bacteria (None) /hpf Urine Mucus (None) /hpf Urine HCG, Qual (Not Detectd) Disposition Clinical Impression: UTI (urinary tract infection), Hyperglycemia due to diabetes mellitus Disposition: HOME SELF-CARE Condition: Good Instructions (If sedation given, give patient instructions): Urinary Tract Infection in Women (ED), Managing Diabetes During Sick Days (ED) Additional Instructions: Increase your fluid intake. Take the prescription for Keflex as prescribed by your primary care doctor today. Return to the emergency room with any new or concerning symptoms including fevers, persistent nausea vomiting or back pain. Is patient prescribed a controlled substance at d/c from ED?: No Referrals: Lucinda Hay MD [Primary Care Provider] - 1-2 days Time of Disposition: 21:47
[2022-05-21 20:10] LABS: Basophils # (A) 0.2 k/uL (0-0.2); Basophils % (A) 1 %; Eosinophils # (A) 0.4 k/uL (0-0.7); Eosinophils % (A) 3 %; HCT 46.9 % (34.0-46.0); HGB 16.4 gm/dL (11.4-16.0); Lymphocytes # (A) 3.4 k/uL (1.0-4.8); Lymphocytes % (A) 25 %; MCH 31.3 pg (25.0-35.0); MCV 89.4 fL (80.0-100.0); Mean Platelet Volume 9.2; Monocytes # (A) 0.7 k/uL (0-1.0); Monocytes % (A) 5 %; Neutrophils # (A) 9.1 k/uL (1.3-7.7); Neutrophils % (A) 66 %; Platelet Count 353 k/uL (150-450); RBC 5.25 m/uL (3.80-5.40); RDW 12.6 % (11.5-15.5); WBC 13.8 k/uL (3.8-10.6)
[2022-05-21 20:17] LABS: African American GFR (CKD) >90 (>60 ml/min/1.73 sqM); Anion Gap 17 mmol/L; Blood Urea Nitrogen 14 mg/dL (7-17); Calcium 9.8 mg/dL (8.4-10.2); Carbon Dioxide 29 mmol/L (22-30); Chloride 91 mmol/L (98-107); Glucose 396 mg/dL (74-99); Non-African American GFR(CKD) >90 (>60 ml/min/1.73 sqM); Potassium 3.4 mmol/L (3.5-5.1); Sodium 137 mmol/L (137-145)
[2022-05-21 20:18] LABS: Appearance,Urine Cloudy (Clear); Bacteria,Urine Rare /hpf; Bilirubin,Urine Negative (Negative); Blood,Urine Moderate (Negative); Color,Urine Yellow; Glucose,Urine (UA) 4+ (Negative); Ketones,Urine Negative (Negative); Leukocyte Esterase,Urine Small (Negative); Mucus,Urine Rare /hpf; Nitrite,Urine Positive (Negative); PH, Urine 5.5 (5.0-8.0); Protein,Urine 3+ (Negative); RBC,Urine 14 /hpf (0-5); Specific Gravity,Urine 1.035 (1.001-1.035); Squamous Epithelial Cell,Urine 4 /hpf (0-4); Urobilinogen,Urine <2.0 mg/dL (<2.0); WBC,Urine 58 /hpf (0-5)
[2022-05-21] MEDS ORDERED: SODIUM CHLORIDE 0.9% 1,000 ML IV ONE (20:23)
[2022-05-21] MEDS ORDERED: cefTRIAXone IN SWFI 1,000 MG/10 ML SYRINGE IVP STA (20:24)
[2022-05-21] MEDS ORDERED: SODIUM CHLORIDE 0.9% 1,000 ML IV SCH (20:30)
--- NOTE | 2022-05-21 21:23 | US ---
EXAMINATION TYPE: US renals and bladder DATE OF EXAM: 05/21/2022 COMPARISON: NONE CLINICAL HISTORY: uti, back pain, hx of kidney stones. UTI, back pain EXAM MEASUREMENTS: Right Kidney: 12.1 x 4.8 x 5.5 cm Left Kidney: 12.6 x 6.9 x 5.2 cm Right Kidney: no evidence of hydronephrosis Left Kidney: no evidnce of hydronephrosis Bladder: not fully distended Bilateral Jets seen: no IMPRESSION: No evidence of renal mass or obstruction. Urinary bladder is almost empty.
--- NOTE | 2022-05-21 21:28 | XR ---
EXAMINATION TYPE: XR KUB DATE OF EXAM: 05/21/2022 COMPARISON: 10/14/2012 HISTORY: Abdominal pain TECHNIQUE: 2 view Upright FINDINGS: 2 views upright show no sign of intestinal obstruction or pneumoperitoneum. Fecal pattern i s normal. Lung bases are clear. There are no pathologic calcifications. Bony structures are intact. N o evidence of a mass. IMPRESSION: Nonacute abdomen. No adverse change.
[2022-05-21 22:07] VITALS: RESP 20
[2022-05-21 22:09] VITALS: BP 120/60; PULSE 90
== END 2022-05-21 22:09 | disposition home or self-care (01) ==
LOC: EC 17:16
DX: N39.0 Urinary tract infection, site not specified (principal); E11.65 Type 2 diabetes mellitus with hyperglycemia; E78.5 Hyperlipidemia, unspecified; I10 Essential (primary) hypertension; I25.2 Old myocardial infarction; F17.200 Nicotine dependence, unspecified, uncomplicated; Z79.4 Long term (current) use of insulin; Z79.82 Long term (current) use of aspirin; Z79.899 Other long term (current) drug therapy
CPT/HCPCS: 36415; 80048; 85025; 81001; 81025; 87086; 74018; 76770; 99284; 96374; 96361; J0696